=== PATIENT | male | born 1970 | race Caucasian/White ===

== ENCOUNTER 2016-11-28 11:17 | Emergency (ER) | payer SELFPAY ==
[~2016-11-28] VITALS: Ht 170.2 cm; Wt 100.2 kg
[~2016-11-28 11:17] MED LIST: CIPR-225 PO; HYDR-3816 PO
[2016-11-28] MEDS ORDERED: NS IV 1000 ML 1,000 ML IV ONE (12:03)
[2016-11-28] MEDS ORDERED: KETOROLAC 30 MG/ML VIAL IVP STA (12:03)
--- NOTE | 2016-11-28 12:03 | ED GU-Male ---
General Chief Complaint: Back Problems Stated Complaint: POSS KIDNEY STONE Nursing Triage Note: pt c/o l lower back pain x 1 month with worsening pain since last noc. he reports he has a known 4 mm kidney stone. Source: patient Exam Limitations: no limitations History of Present Illness Time seen by provider: 11:46 Initial Comments 45-year-old male patient presents to the emergency department with complaints of kidney stone. Patient reports left low back pain beginning last night. Was diagnosed at [facility] one month ago with a 4 mm kidney stone. Patient states he was seen at [facility] due to being in custodial in [place]. Timing/Duration: constant, yesterday Severity/Quality: severe, sharp Location: other (left back) Radiation: none Activities at Onset: none Prior Genitourinary Problems: similar symptoms Modifying Factors: Worsens With Palpation Allergies and Home Medications Allergies Coded Allergies: No Known Drug Allergies (Unverified , 02/14/16) Home Medications Ciprofloxacin HCl 500 Mg Tablet, 500 MG PO BID, #14 Prescribed by: VALENTINA VILLAFUERTE on 02/14/161942 Ciprofloxacin HCl 500 Mg Tablet, 500 MG PO BID, #14 Ref 0 Prescribed by: DANA OMALLEY on 11/28/16 1402 Hydrocodone/Acetaminophen 1 Each Tablet, 1 EACH PO Q6H, #10 Prescribed by: VALENTINA VILLAFUERTE on 02/14/161942 Naproxen 500 Mg Tablet, 500 MG PO BID PRN for pain, #20 Ref 0 Prescribed by: DANA OMALLEY on 11/28/16 1402 Ondansetron 8 Mg Tab.rapdis, 8 MG PO Q6H PRN for NAUSEA/VOMITING-1ST LINE, #10 Ref 0 Prescribed by: DANA OMALLEY on 11/28/16 1402 Phenazopyridine HCl 100 Mg Tablet, 100 MG PO Q8H PRN for ain, #14 Ref 1 Prescribed by: DANA OMALLEY on 11/28/16 1402 Tamsulosin HCl 0.4 Mg Cap, 0.4 MG PO DAILY, #7 Ref 0 Prescribed by: DANA OMALLEY on 11/28/16 1402 Constitutional: No chills, No fever, No malaise Respiratory: No cough, No short of breath Cardiovascular: No chest pain, No palpitations Gastrointestinal: No abdominal pain, No constipation, No diarrhea, No loss of appetite, No melena, No nausea, No vomiting Genitourinary: see HPI, denies dysuria, denies frequency, denies flank pain, denies hematuria, denies pain Musculoskeletal: see HPI, back pain Skin: no symptoms reported Psychiatric/Neurological: No Symptoms Reported All Other Systemes Reviewed Negative Unless Noted: Yes (Negative excepted noted.) Past Hgogyoc-Vnlkvv-Ewsooj Hx Patient Social History Alcohol Use: Denies Use Recreational Drug Use: Yes Drug of Choice: methamphetamines, marijuana Smoking Status: Current Everyday Smoker Type Used: Cigarettes 2nd Hand Smoke Exposure: Yes Recent Foreign Travel: No Contact w/Someone Who Travel: No Recent Infectious Disease Expo: No Recent Hopitalizations: No Surgeries HX Surgeries: No Respiratory Hx Respiratory Disorders: No Cardiovascular Hx Cardiac Disorders: No Neurological Hx Neurological Disorders: No Reproductive System Hx Reproductive Disorders: No Genitourinary Hx Genitourinary Disorders: No Gastrointestinal Hx Gastrointestinal Disorders: Yes Gastrointestinal Disorders: Hepatitis Musculoskeletal Hx Musculoskeletal Disorders: No Endocrine Hx Endocrine Disorders: No HEENT HX ENT Disorders: No Cancer Hx Cancer: No Psychosocial Hx Psychiatric Problems: No Integumentary HX Skin/Integumentary Disorder: No Blood Transfusions Hx Blood Disorders: No Reviewed Nursing Assessment Reviewed/Agree w Nursing PMH: Yes Family Medical History Significant Family History: Heart Disease Physical Exam Vital Signs Vital Sign - Last 12Hours 11/28/16 11:44 Temp 97.1 Pulse 115 Resp 20 B/P (MAP) 148/99 Pulse Ox 98 O2 Delivery Room Air Capillary Refill : Less Than 3 Seconds General Appearance: WD/WN, no apparent distress ((patient lying in bed with his hands behind his head. Patient noted to be constantly moving his hands and BLE.)) Cardiovascular: normal peripheral pulses, no murmur, tachycardia Respiratory: lungs clear, normal breath sounds, no respiratory distress Gastrointestinal: normal bowel sounds, non tender, soft, no organomegaly, No distended Back: normal inspection, No CVA tenderness (R), CVA tenderness (L) (No pain response noted with the first 2 taps of the left low back. I repeated the tapping and patient now noted to grimace in pain.) Extremities: no pedal edema, normal capillary refill, other Neurologic/Psychiatric: alert, oriented x 3, other (patient very fidgety. Constantly moving hands and feet. Otherwise normal mood and affect.) Skin: normal color, warm/dry, other (numerous scabs noted of the upper and lower extremities in various stages of healing. (Patient states he is staying with a friend and they have bedbugs)) Progress/Results/Core Measures Results/Orders Lab Results Laboratory Tests Test 11/28/16 11:30 11/28/16 12:05 Range/Units White Blood Count 5.5 4.3-11.0 10^3/uL Red Blood Count 4.49 4.35-5.85 10^6/uL Hemoglobin 14.0 13.3-17.7 G/DL Hematocrit 41 40-54 % Mean Corpuscular Volume 92 80-99 FL Mean Corpuscular Hemoglobin 31 25-34 PG Mean Corpuscular Hemoglobin Concent 34 32-36 G/DL Red Cell Distribution Width 14.4 10.0-14.5 % Platelet Count 83 L 130-400 10^3/uL Mean Platelet Volume 10.0 7.4-10.4 FL Neutrophils (%) (Auto) 74 42-75 % Lymphocytes (%) (Auto) 15 12-44 % Monocytes (%) (Auto) 9 0-12 % Eosinophils (%) (Auto) 2 0-10 % Basophils (%) (Auto) 0 0-10 % Neutrophils # (Auto) 4.0 1.8-7.8 X 10^3 Lymphocytes # (Auto) 0.8 L 1.0-4.0 X 10^3 Monocytes # (Auto) 0.5 0.0-1.0 X 10^3 Eosinophils # (Auto) 0.1 0.0-0.3 10^3/uL Basophils # (Auto) 0.0 0.0-0.1 10^3/uL Sodium Level 137 135-145 MMOL/L Potassium Level 3.6 3.6-5.0 MMOL/L Chloride Level 106 98-107 MMOL/L Carbon Dioxide Level 25 21-32 MMOL/L Anion Gap 6 5-14 MMOL/L Blood Urea Nitrogen 10 7-18 MG/DL Creatinine 1.16 0.60-1.30 MG/DL Estimat Glomerular Filtration Rate > 60 BUN/Creatinine Ratio 9 Glucose Level 100 70-105 MG/DL Calcium Level 8.7 8.5-10.1 MG/DL Total Bilirubin 1.1 H 0.1-1.0 MG/DL Aspartate Amino Transf (AST/SGOT) 95 H 5-34 U/L Alanine Aminotransferase (ALT/SGPT) 105 H 0-55 U/L Alkaline Phosphatase 86 40-136 U/L Total Protein 6.9 6.4-8.2 GM/DL Albumin 3.5 3.2-4.5 GM/DL Urine Color YELLOW Urine Clarity CLEAR Urine pH 7 5-9 Urine Specific [place] 1.015 L 1.016-1.022 Urine Protein NEGATIVE NEGATIVE Urine Glucose (UA) NEGATIVE NEGATIVE Urine Ketones NEGATIVE NEGATIVE Urine Nitrite NEGATIVE NEGATIVE Urine Bilirubin NEGATIVE NEGATIVE Urine Urobilinogen 1 NORMAL MG/DL Urine Leukocyte Esterase NEGATIVE NEGATIVE Urine RBC (Auto) 4+ H NEGATIVE Urine RBC 10-25 H /HPF Urine WBC NONE /HPF Urine Squamous Epithelial Cells NONE /HPF Urine Crystals NONE /LPF Urine Bacteria NEGATIVE /HPF Urine Casts NONE /LPF Urine Mucus NEGATIVE /LPF Urine Culture Indicated NO Urine Opiates Screen NEGATIVE NEGATIVE Urine Oxycodone Screen NEGATIVE NEGATIVE Urine Methadone Screen NEGATIVE NEGATIVE Urine Propoxyphene Screen NEGATIVE NEGATIVE Urine Barbiturates Screen NEGATIVE NEGATIVE Ur Tricyclic Antidepressants Screen NEGATIVE NEGATIVE Urine Phencyclidine Screen NEGATIVE NEGATIVE Urine Amphetamines Screen POSITIVE H NEGATIVE Urine Methamphetamines Screen POSITIVE H NEGATIVE Urine Benzodiazepines Screen NEGATIVE NEGATIVE Urine Cocaine Screen NEGATIVE NEGATIVE Urine Cannabinoids Screen POSITIVE H NEGATIVE My Orders Orders - DANA OMALLEY Drug Screen Stat (Urine) (11/28/16 11:47) Ua Culture If Indicated (11/28/16 11:47) Cbc With Automated Diff (11/28/16 11:56) Comprehensive Metabolic Panel (11/28/16 11:56) Saline Lock/Iv-Start (11/28/16 11:56) Ct Abd/Pelvis Wo(Kidney Stone) (11/28/16 12:03) Ns Iv 1000 Ml (Sodium Chloride 0.9%) (11/28/16 12:03) Ketorolac Injection (Toradol Injection) (11/28/16 12:03) Abdomen/Kub 1view (11/28/16 13:29) Medications Given in ED Current Medications Medications Dose Ordered Sig/Maryellen Route Start Time Stop Time Status Last Admin Dose Admin Sodium Chloride 1,000 ml @ 0 mls/hr Q0M ONCE IV 11/28/16 12:03 11/28/16 12:04 DC 11/28/16 12:22 0 MLS/HR Vital Signs/I&O Vital Sign - Last 12Hours 11/28/16 11:44 Temp 97.1 Pulse 115 Resp 20 B/P (MAP) 148/99 Pulse Ox 98 O2 Delivery Room Air Blood Pressure Mean: 115 Diagnostic Imaging Diagonstic Imaging: CT Plain Films/CT/US/NM/MRI: abdomen, pelvis Comments There is a mild/moderate degree of left-sided hydroureteronephrosis secondary to a distal left ureteral stone measuring a diameter of 3.3 mm with an average Hounsfield unit density 433. This stone is found about 2 cm proximal to the UVJ. A second left pelvic calcification is believed phlebolith near the urinary bladder. This calcification is unchanged from the prior and felt incidental. There is trace pelvic free fluid. There is mild perinephric and periureteric edema on the left. No urinoma or fluid collection however. The liver 's density and morphology suggest cirrhosis likely worsened from the prior. Mild splenomegaly is also increased in magnitude, and there is progressive perisplenic, perigastric, and periesophageal vascular collaterals likely reflective of the sequelae of portal venous hypertension, also is likely recanalization of the periumbilical vein on the same basis. There is some edema and infiltration of the fat along the mesenteric root as well as in the retroperitoneum most notably adjacent to the duodenum. Duodenal inflammation could not be excluded. This may also be edema from suspected portal hypertension. The appendix appeared normal. There is resolution of the previous right hydronephrosis. There are a few gallstones present but no biliary dilatation. No basilar pleural fluid. IMPRESSION: 1. Moderate left hydroureteronephrosis secondary to a distal left ureteral stone 3.3 mm diameter proximal to the UVJ. Resolution of previous obstructing right-sided uropathy. 2. Worsened splenomegaly. Likely cirrhosis and progressive sequelae of portal venous hypertension with trace pelvic free fluid. 3. Cholelithiasis without biliary dilatation. 4. Some edema along the mesenteric root and retroperitoneum peripheral to the transverse and descending duodenum. This likely is secondary to the suspected portal hypertension itself; however, duodenitis or even low- grade inflammatory changes to the pancreas could not be excluded in the appropriate clinical scenario. Dictated on workstation # [id number] Reviewed: Reviewed by Me (radiology report reviewed by me) Diagonstic Imaging: Xray Plain Films/CT/US/NM/MRI: abdomen Comments FINDINGS: There is a moderate amount of stool in the colon. Bowel gas pattern is normal. There are no pathologic masses or calcifications. IMPRESSION: No acute abnormality seen in the abdomen. Dictated by: Dictated on workstation # [id number] Reviewed: Reviewed by Me (radiology report reviewed by me) Departure Communication Progress Notes All laboratory and diagnostic findings discussed with the patient. Patient reports using methamphetamines 2-3 days ago. Patient reports feeling better with medications. Patient follow-up with primary care physician of his choice and/or Dr. Shepard. Patient to call thursday for appointment time. Impression Impression: Primary Impression: Nephrolithiasis Additional Impressions: incidental cholelithiasis Cirrhosis Splenomegaly Methamphetamine abuse Disposition: HOME, SELF-CARE Condition: Improved Departure-Patient Inst. Decision time for Depature: 13:49 Referrals: NO,LOCAL PHYSICIAN (PCP) Primary Care Physician JAGDEEP SHEPARD MD Patient Instructions: Cirrhosis (DC), Gallstones, Kidney Stones (DC) Add. Discharge Instructions: All discharge instructions reviewed with patient and/or family. Voiced understanding. Medications as instructed. Ibuprofen 800 mg by mouth every 8 hours as needed for pain. Strain all urines. Follow-up with your primary care physician bud or Dr. Shepard for recheck and repeat x-ray Thursday or Thursday. Call for appointment time Thursday. Follow-up with the family practitioner of your choice for further evaluation and management of the enlarged spleen and cirrhosis as well as possible need for referral to a surgeon for possible need of gallbadder removal. Strict low-fat diet. Return to the emergency department for worsened pain, fever, inability to urinate, blood in urine, or any other concerns. Scripts Ondansetron (Ondansetron Odt) 8 Mg Tab.rapdis 8 MG PO Q6H Y for NAUSEA/VOMITING-1ST LINE, #10 TAB 0 Refills Prov: DANA OMALLEY 11/28/16 Phenazopyridine HCl (Pyridium) 100 Mg Tablet 100 MG PO Q8H Y for ain, #14 TAB 1 Refill Prov: DANA OMALLEY 11/28/16 Tamsulosin HCl (Flomax) 0.4 Mg Cap 0.4 MG PO DAILY, #7 CAP 0 Refills Prov: DANA OMALLEY 11/28/16 Naproxen (Naprosyn) 500 Mg Tablet 500 MG PO BID Y for pain, #20 TAB 0 Refills Prov: DANA OMALLEY 11/28/16 Ciprofloxacin HCl (Ciprofloxacin HCl) 500 Mg Tablet 500 MG PO BID, #14 TAB 0 Refills Prov: DANA OMALLEY 11/28/16 DANA OMALLEY Nov 28, 2016 12:03
[2016-11-28 12:04] LABS: BASOPHILS % (AUTO) 0 % (0-10); EOSINOPHILS # (AUTO) 0.1 10^3/uL (0.0-0.3); EOSINOPHILS % (AUTO) 2 % (0-10); LYMPHOCYTES # (AUTO) 0.8 X 10^3 (1.0-4.0); LYMPHOCYTES % (AUTO) 15 % (12-44); MEAN CORPUSCULAR HEMOGLOBIN 31 PG (25-34); MEAN CORPUSCULAR HGB CONC 34 G/DL (32-36); MEAN CORPUSCULAR VOLUME 92 FL (80-99); MONOCYTES # (AUTO) 0.5 X 10^3 (0.0-1.0); MONOCYTES % (AUTO) 9 % (0-12); NEUTROPHILS % (AUTO) 74 % (42-75); PLATELET COUNT 83 10^3/uL (130-400); RED BLOOD COUNT 4.49 10^6/uL (4.35-5.85); RED CELL DISTRIBUTION WIDTH 14.4 % (10.0-14.5); WHITE BLOOD COUNT 5.5 10^3/uL (4.3-11.0)
[2016-11-28 12:16] LABS: BILIRUBIN,URINE NEGATIVE (NEGATIVE); KETONES,URINE NEGATIVE (NEGATIVE); LEUKOCYTE ESTERASE ,URINE NEGATIVE (NEGATIVE); NITRITE,URINE NEGATIVE (NEGATIVE); PH,URINE 7 (5-9); PROTEIN,URINE NEGATIVE (NEGATIVE); UROBILINOGEN,URINE 1 MG/DL (NORMAL)
[2016-11-28 12:18] LABS: ALANINE AMINOTRANSFERASE 105 U/L (0-55); ALBUMIN 3.5 GM/DL (3.2-4.5); ANION GAP 6 MMOL/L (5-14); ASPARTATE AMINO TRANSFERASE 95 U/L (5-34); BILIRUBIN,TOTAL 1.1 MG/DL (0.1-1.0); BLOOD UREA NITROGEN 10 MG/DL (7-18); BUN/CREATININE RATIO 9; CALCIUM 8.7 MG/DL (8.5-10.1); CARBON DIOXIDE 25 MMOL/L (21-32); CHLORIDE 106 MMOL/L (98-107); CREATININE SERUM 1.16 MG/DL (0.60-1.30); GFR ESTIMATED > 60; GLUCOSE 100 MG/DL (70-105); POTASSIUM 3.6 MMOL/L (3.6-5.0); SODIUM 137 MMOL/L (135-145); TOTAL PROTEIN 6.9 GM/DL (6.4-8.2)
--- NOTE | 2016-11-28 13:41 | Diagnostic Imaging Report ---
PROCEDURE: CT urinary tract, rule out kidney stone. TECHNIQUE: Multiple contiguous axial images were obtained through the abdomen and pelvis without the use of intravenous contrast. INDICATION: Left flank pain worsening in severity. History of nephrolithiasis. Exam is compared with study performed 02/14/2016. There is a mild/moderate degree of left-sided hydroureteronephrosis secondary to a distal left ureteral stone measuring a diameter of 3.3 mm with an average Hounsfield unit density 433. This stone is found about 2 cm proximal to the UVJ. A second left pelvic calcification is believed phlebolith near the urinary bladder. This calcification is unchanged from the prior and felt incidental. There is trace pelvic free fluid. There is mild perinephric and periureteric edema on the left. No urinoma or fluid collection however. The liver 's density and morphology suggest cirrhosis likely worsened from the prior. Mild splenomegaly is also increased in magnitude, and there is progressive perisplenic, perigastric, and periesophageal vascular collaterals likely reflective of the sequelae of portal venous hypertension, also is likely recanalization of the periumbilical vein on the same basis. There is some edema and infiltration of the fat along the mesenteric root as well as in the retroperitoneum most notably adjacent to the duodenum. Duodenal inflammation could not be excluded. This may also be edema from suspected portal hypertension. The appendix appeared normal. There is resolution of the previous right hydronephrosis. There are a few gallstones present but no biliary dilatation. No basilar pleural fluid. IMPRESSION: 1. Moderate left hydroureteronephrosis secondary to a distal left ureteral stone 3.3 mm diameter proximal to the UVJ. Resolution of previous obstructing right-sided uropathy. 2. Worsened splenomegaly. Likely cirrhosis and progressive sequelae of portal venous hypertension with trace pelvic free fluid. 3. Cholelithiasis without biliary dilatation. 4. Some edema along the mesenteric root and retroperitoneum peripheral to the transverse and descending duodenum. This likely is secondary to the suspected portal hypertension itself; however, duodenitis or even low-grade inflammatory changes to the pancreas could not be excluded in the appropriate clinical scenario. Dictated by: Dictated on workstation # [id number]
--- NOTE | 2016-11-28 13:48 | Diagnostic Imaging Report ---
INDICATION: Abdominal pain. KUB at 1:54 PM FINDINGS: There is a moderate amount of stool in the colon. Bowel gas pattern is normal. There are no pathologic masses or calcifications. IMPRESSION: No acute abnormality seen in the abdomen. Dictated by: Dictated on workstation # [id number]
[2016-11-28] MEDS ORDERED: CIPR500T4 PO (14:02)
[2016-11-28] MEDS ORDERED: ONDA8TAB13 PO (14:02)
[2016-11-28] MEDS ORDERED: PHEN-639 PO (14:02)
[2016-11-28] MEDS ORDERED: NAPR500T PO (14:02)
[2016-11-28] MEDS ORDERED: TAMS0.4C98 PO (14:02)
[2016-11-28 14:10] VITALS: BP 148/99
== END 2016-11-28 14:10 | disposition home or self-care (01) ==
LOC: EDUNIT# 11:17 → ER 11:20
DX: N20.0 Calculus of kidney (principal); K80.20 Calculus of gallbladder without cholecystitis without obstruction; K74.60 Unspecified cirrhosis of liver; R16.1 Splenomegaly, not elsewhere classified; F17.210 Nicotine dependence, cigarettes, uncomplicated; F15.10 Other stimulant abuse, uncomplicated; F12.90 Cannabis use, unspecified, uncomplicated; Z82.49 Family history of ischemic heart disease and other diseases of the circulatory system
CPT/HCPCS: 36415; 74000; 74176; 80053; 80306; 81000; 85025

== ENCOUNTER 2020-01-09 14:35 | Emergency (ER) | payer SELFPAY ==
[~2020-01-09] VITALS: Ht 171 cm; Wt 83.3 kg
[~2020-01-09 14:35] MED LIST changes: +CIPR500T4 PO; +HYDR-34 PO; -HYDR-3816 PO; +NAPR-1071 PO; +ONDA8TAB13 PO; +PHEN-639 PO; +TMSL.4C PO
[2020-01-09] MEDS ORDERED: HOLD METFORMIN - RECEIVED CONTRAST 20 ML VIAL IV SCH (15:00)
[2020-01-09] MEDS ORDERED: VANCOMYCIN INJECTION 1,000 MG in NS (IVPB) 250 ML IV ONE (15:00)
[2020-01-09] MEDS ORDERED: IOHEXOL 350 MG/ML 100 ML (OMNIPAQUE 350) VIAL IV ONE (15:00)
[2020-01-09] MEDS ORDERED: NS 100 ML (IVPB) BAG IV ONE (15:00)
[2020-01-09] MEDS ORDERED: CATHETER FLUSH 10 ML SYR IV PRN (15:00)
--- NOTE | 2020-01-09 15:01 | ED Integumentary General ---
General Chief Complaint: Skin/Wound Problems Stated Complaint: FACIAL SWELLING Source: patient Exam Limitations: no limitations History of Present Illness Date Seen by Provider: Jan 09, 2020 Time Seen by Provider: 14:50 Initial Comments 49-year-old male presents to the walk-in clinic for swelling of his left jaw. Sent to the ER for evaluation due to concerns of neck swelling. Given a shot of Rocephin IM. Patient states the swelling has been present beginning a couple days ago and is getting significantly worse today. Started off as a small bump on his left jaw that he admits to squeezing. Has had some drainage from this location, although not significant. Now having swelling and some pain in his left side of his neck and his upper anterior chest. Denies fever or chills, other areas of swelling or sores. Admitted Meth user. Allergies and Home Medications Allergies Coded Allergies: No Known Drug Allergies (Unverified , 02/14/16) Home Medications Ciprofloxacin HCl 500 Mg Tablet, 500 MG PO BID Prescribed by: VALENTINA VILLAFUERTE on 02/14/161942 Ciprofloxacin HCl 500 Mg Tablet, 500 MG PO BID Prescribed by: DANA OMALLEY on 11/28/161401 Hydrocodone Bit/Acetaminophen 1 Each Tablet, 1 EACH PO Q6H Prescribed by: VALENTINA VILLAFUERTE on 02/14/161942 Hydrocodone/Acetaminophen 1 Each Tablet, 1 EACH PO Q4H Prescribed by: MILLY NI on 01/09/20 160 Naproxen 500 Mg Tablet, 500 MG PO BID PRN for pain Prescribed by: DANA OMALLEY on 11/28/161401 Ondansetron 8 Mg Tab.rapdis, 8 MG PO Q6H PRN for NAUSEA/VOMITING-1ST LINE Prescribed by: DANA OMALLEY on 11/28/161401 Phenazopyridine HCl 100 Mg Tablet, 100 MG PO Q8H PRN for ain Prescribed by: DANA OMALLEY on 11/28/161401 Sulfamethoxazole/Trimethoprim 1 Each Tablet, 1 EACH PO BID Prescribed by: MILLY NI on 01/09/20 160 Tamsulosin HCl 0.4 Mg Cap, 0.4 MG PO DAILY Prescribed by: DANA OMALLEY on 11/28/161401 Patient Home Medication List Home Medication List Reviewed: Yes Review of Systems Review of Systems Constitutional: No dizziness, No fever, No malaise, No weakness EENTM: see HPI, dental problems (but no dental pain (chronic dental decay)), throat pain, throat swelling; No blurred vision, No double vision, No eye pain, No hoarseness, No mouth pain, No mouth swelling, No epistaxis, No nose c ongestion, No nose pain Respiratory: No cough, No short of breath, No stridor, No wheezing Cardiovascular: see HPI; No chest pain, No edema, No palpitations, No syncope Gastrointestinal: No abdominal pain, No constipation, No diarrhea, No loss of appetite, No nausea, No vomiting Musculoskeletal: No back pain Past Ycvjjkl-Dfupms-Mxwihx Hx Past Med/Social Hx: Reviewed Nursing Past Med/Soc Hx Patient Social History Alcohol Use: Denies Use Recreational Drug Use: Yes (Last used meth 01/09/20) Drug of Choice: intravenous methamphetamines, marijuana Smoking Status: Current Everyday Smoker Type Used: Cigarettes 2nd Hand Smoke Exposure: Yes Recent Foreign Travel: No Contact w/Someone Who Travel: No Recent Hopitalizations: No Physical Abuse: No Sexual Abuse: No Mistreated: No Fear: No Seasonal Allergies Seasonal Allergies: No Past Medical History Surgeries: Yes (Kidney stone removal) Respiratory: No Cardiac: No Neurological: No Reproductive Disorders: No Genitourinary: Yes Kidney Stones Gastrointestinal: Yes Hepatitis Musculoskeletal: No Endocrine: No Cancer: No Psychosocial: No Integumentary: No Blood Disorders: No Family Medical History Heart Disease Physical Exam Vital Signs Vital Signs - First Documented 01/09/20 14:48 Temp 37.6 Pulse 106 Resp 18 B/P (MAP) 143/90 (107) Pulse Ox 98 O2 Delivery Room Air Capillary Refill : General Appearance: WD/WN, no apparent distress HEENT: PERRL/EOMI, other (gross edema left mandible and left submandibular area w induration of left lateral and anterior neck as well as upper ant chest.) Cardiovascular: regular rate, rhythm, no edema, no gallop Respiratory: lungs clear, normal breath sounds, no respiratory distress, no accessory muscle use Gastrointestinal: non tender, soft; No distended, No guarding, No rebound Back: No normal inspection; no CVA tenderness, no vertebral tenderness Neurologic/Psychiatric: instructor decorating II-XII nml as tested, no motor/sensory deficits, alert, normal mood/affect, oriented x 3 Progress/Results/Core Measures Results/Orders Lab Results Laboratory Tests Test 01/09/20 14:58 Range/Units White Blood Count 8.7 4.3-11.0 10^3/uL Red Blood Count 4.68 4.35-5.85 10^6/uL Hemoglobin 14.1 13.3-17.7 G/DL Hematocrit 43 40-54 % Mean Corpuscular Volume 92 80-99 FL Mean Corpuscular Hemoglobin 30 25-34 PG Mean Corpuscular Hemoglobin Concent 33 32-36 G/DL Red Cell Distribution Width 15.4 H 10.0-14.5 % Platelet Count 55 L 130-400 10^3/uL Mean Platelet Volume 10.0 7.4-10.4 FL Neutrophils (%) (Auto) 81 H 42-75 % Lymphocytes (%) (Auto) 10 L 12-44 % Monocytes (%) (Auto) 8 0-12 % Eosinophils (%) (Auto) 1 0-10 % Basophils (%) (Auto) 0 0-10 % Neutrophils # (Auto) 7.0 1.8-7.8 X 10^3 Lymphocytes # (Auto) 0.9 L 1.0-4.0 X 10^3 Monocytes # (Auto) 0.7 0.0-1.0 X 10^3 Eosinophils # (Auto) 0.1 0.0-0.3 10^3/uL Basophils # (Auto) 0.0 0.0-0.1 10^3/uL Sodium Level 135 135-145 MMOL/L Potassium Level 3.6 3.6-5.0 MMOL/L Chloride Level 98 98-107 MMOL/L Carbon Dioxide Level 25 21-32 MMOL/L Anion Gap 12 5-14 MMOL/L Blood Urea Nitrogen 10 7-18 MG/DL Creatinine 0.76 0.60-1.30 MG/DL Estimat Glomerular Filtration Rate > 60 BUN/Creatinine Ratio 13 Glucose Level 116 H 70-105 MG/DL Calcium Level 9.2 8.5-10.1 MG/DL Corrected Calcium 9.2 8.5-10.1 MG/DL Total Bilirubin 3.4 H 0.1-1.0 MG/DL Aspartate Amino Transf (AST/SGOT) 90 H 5-34 U/L Alanine Aminotransferase (ALT/SGPT) 86 H 0-55 U/L Alkaline Phosphatase 78 40-136 U/L Total Protein 7.4 6.4-8.2 GM/DL Albumin 4.0 3.2-4.5 GM/DL My Orders Orders - MILLY NI DO Ct Neck (Soft Tissue) W (01/09/20 14:48) Ed Iv/Invasive Line Start (01/09/20 14:48) Blood Culture (01/09/20 14:48) Cbc With Automated Diff (01/09/20 14:48) Comprehensive Metabolic Panel (01/09/20 14:48) Iohexol Injection (Omnipaque 350 Mg/Ml 1 (01/09/20 15:00) Received Contrast (Hold Metformin- Contr (01/09/20 15:00) Sodium Chloride Flush (Catheter Flush Sy (01/09/20 15:00) Ns (Ivpb) (Sodium Chloride 0.9% Ivpb Bag (01/09/20 15:00) Vancomycin Injection (Vancomycin Injecti (01/09/20 15:00) Blood Culture (01/09/20 15:03) Ns Iv 1000 Ml (Sodium Chloride 0.9%) (01/09/20 15:45) Medications Given in ED Current Medications Medications Dose Ordered Sig/Maryellen Route Start Time Stop Time Status Last Admin Dose Admin Iohexol 75 ml ONCE ONCE IV 01/09/20 15:00 01/09/20 15:01 DC 01/09/20 15:15 75 ML Sodium Chloride 10 ml NEEDED PRN IV 01/09/20 15:00 01/09/20 15:15 10 ML Sodium Chloride 100 ml ONCE ONCE IV 01/09/20 15:00 01/09/20 15:01 DC 01/09/20 15:15 80 ML Vancomycin HCl 1000 mg/Sodium Chloride 250 ml @ 250 mls/hr ONCE ONCE IV 01/09/20 15:00 01/09/20 15:59 DC 01/09/20 15:21 250 MLS/HR Vital Signs/I&O 01/09/20 14:48 Temp 37.6 Pulse 106 Resp 18 B/P (MAP) 143/90 (107) Pulse Ox 98 O2 Delivery Room Air Diagnostic Imaging Diagonstic Imaging: CT Comments FINDINGS: The visualized intracranial structures are unremarkable. The posterior nasopharynx and oropharynx are unremarkable. The parapharyngeal fat planes are preserved. The epiglottis and larynx are unremarkable. No thyroid mass is detected. The submandibular and parotid glands appear to be symmetric. There is edema and soft tissue swelling in the left face at the level of the left maxilla and mandible. Edema and swelling extend inferiorly to the left neck. There is thickening of the platysma. No well-formed fluid collection or abscess is identified. The retropharyngeal soft tissues are unremarkable. Minimally prominent lymph nodes in the left neck are seen, likely reactive. The visualized paranasal sinuses are clear apart from trace mucosal thickening in the left maxillary sinus. The mastoids are well aerated. IMPRESSION: Findings are suggestive of cellulitis over the left face and left neck. No fluid collection or abscess is identified. Dictated by: Dictated on workstation # [id number] Dict: 01/09/20 1534 Trans: 01/09/20 1548 [id number] Interpreted by: ALLISON VARGAS MD Electronically signed by: ALLISON VARGAS MD 01/09/20 1548 Departure Impression Primary Impression: Facial cellulitis Disposition: HOME, SELF-CARE Condition: Stable Admissions Decision to Admit Reason: Admit from ER (General) Departure-Patient Inst. Decision time for Depature: 16:01 Referrals: [facility] – [facility],LOCAL PHYSICIAN (PCP) Primary Care Physician Patient Instructions: Cellulitis (Skin Infection), Adult (DC) Add. Discharge Instructions: Follow up at the [facility] ([facility]) in 2 days for re-evaluation. Ret urn to the ER sooner if worse. All discharge instructions reviewed with patient and/or family. Voiced understanding. Scripts Hydrocodone/Acetaminophen (Hydrocodone-Acetamin 5-325 mg) 1 Each Tablet 1 EACH PO Q4H for Abdominal Pain, #10 TAB Prov: MILLY NI DO 01/09/20 Sulfamethoxazole/Trimethoprim (Bactrim Ds Tablet) 1 Each Tablet 1 EACH PO BID, #20 TAB 0 Refills Prov: MILLY NI DO 01/09/20 Work/School Note: Work Release Form Date Seen in the Emergency Department: Jan 09, 2020 MILLY NI DO Jan 09, 2020 15:01
[2020-01-09 15:12] LABS: HEMATOCRIT 43 % (40-54); HEMOGLOBIN 14.1 G/DL (13.3-17.7); MEAN CORPUSCULAR HEMOGLOBIN 30 PG (25-34); WHITE BLOOD COUNT 8.7 10^3/uL (4.3-11.0)
[2020-01-09 15:13] LABS: BASOPHILS % (AUTO) 0 % (0-10); EOSINOPHILS # (AUTO) 0.1 10^3/uL (0.0-0.3); EOSINOPHILS % (AUTO) 1 % (0-10); LYMPHOCYTES # (AUTO) 0.9 X 10^3 (1.0-4.0); LYMPHOCYTES % (AUTO) 10 % (12-44); MEAN CORPUSCULAR HGB CONC 33 G/DL (32-36); MEAN CORPUSCULAR VOLUME 92 FL (80-99); MONOCYTES # (AUTO) 0.7 X 10^3 (0.0-1.0); MONOCYTES % (AUTO) 8 % (0-12); NEUTROPHILS % (AUTO) 81 % (42-75); PLATELET COUNT 55 10^3/uL (130-400); RED CELL DISTRIBUTION WIDTH 15.4 % (10.0-14.5)
[2020-01-09 15:29] LABS: BUN/CREATININE RATIO 13; CARBON DIOXIDE 25 MMOL/L (21-32); CHLORIDE 98 MMOL/L (98-107); CREATININE SERUM 0.76 MG/DL (0.60-1.30); GFR ESTIMATED > 60; POTASSIUM 3.6 MMOL/L (3.6-5.0); SODIUM 135 MMOL/L (135-145)
[2020-01-09 15:30] LABS: ALANINE AMINOTRANSFERASE 86 U/L (0-55); ALKALINE PHOSPHATASE 78 U/L (40-136); BILIRUBIN,TOTAL 3.4 MG/DL (0.1-1.0); CALCIUM 9.2 MG/DL (8.5-10.1); GLUCOSE 116 MG/DL (70-105); TOTAL PROTEIN 7.4 GM/DL (6.4-8.2)
--- NOTE | 2020-01-09 15:42 | Diagnostic Imaging Report ---
PROCEDURE: CT neck soft tissue with contrast. TECHNIQUE: Multiple contiguous axial images were obtained through the neck after the administration of contrast. Auto Exposure Controls were utilized during the CT exam to meet ALARA standards for radiation dose reduction. INDICATION: Left neck abscess. COMPARISON: No prior studies are available for comparison. FINDINGS: The visualized intracranial structures are unremarkable. The posterior nasopharynx and oropharynx are unremarkable. The parapharyngeal fat planes are preserved. The epiglottis and larynx are unremarkable. No thyroid mass is detected. The submandibular and parotid glands appear to be symmetric. There is edema and soft tissue swelling in the left face at the level of the left maxilla and mandible. Edema and swelling extend inferiorly to the left neck. There is thickening of the platysma. No well-formed fluid collection or abscess is identified. The retropharyngeal soft tissues are unremarkable. Minimally prominent lymph nodes in the left neck are seen, likely reactive. The visualized paranasal sinuses are clear apart from trace mucosal thickening in the left maxillary sinus. The mastoids are well aerated. IMPRESSION: Findings are suggestive of cellulitis over the left face and left neck. No fluid collection or abscess is identified. Dictated by: Dictated on workstation # [id number]
[2020-01-09] MEDS ORDERED: NS IV 1000 ML 1,000 ML IV SCH (15:45)
[2020-01-09] MEDS ORDERED: SULF1TAB35 PO (16:02)
[2020-01-09] MEDS ORDERED: HYDR-3812 PO (16:02)
[2020-01-09 16:17] VITALS: BP 147/85
== END 2020-01-09 16:17 | disposition home or self-care (01) ==
LOC: EDUNIT# 14:35 → ER FS 14:38
DX: L03.211 Cellulitis of face (principal); F17.210 Nicotine dependence, cigarettes, uncomplicated; Z82.49 Family history of ischemic heart disease and other diseases of the circulatory system
CPT/HCPCS: 36415; 70491; 80053; 85025; 87040

== ENCOUNTER 2020-06-09 20:18 | Emergency (ER) | payer SELFPAY ==
[~2020-06-09] VITALS: Ht 170 cm; Wt 83.3 kg
[~2020-06-09 20:18] MED LIST changes: +ACHD5005 PO; +SULF1TAB35 PO
[2020-06-09] MEDS ORDERED: TETANUS,DIPTH,PERTUSS P/F (BOOSTRIX) 0.5 ML VIAL IM ONE ×2 (20:42→20:45)
--- NOTE | 2020-06-09 20:48 | ED Integumentary General ---
General Stated Complaint: HEAD LACERATION Source: patient Exam Limitations: no limitations History of Present Illness Date Seen by Provider: Jun 09, 2020 Time Seen by Provider: 20:46 Initial Comments Patient was climbing into the backseat of a truck when some sharp piece of jagged metal lacerated his scalp. No loss of consciousness. Tetanus is not up-to-date. This occurred just prior to arrival. Timing/Duration: just prior to arrival Location: scalp Associated Symptoms: denies symptoms Allergies and Home Medications Allergies Coded Allergies: No Known Drug Allergies (Unverified , 02/14/16) Home Medications Ciprofloxacin HCl 500 Mg Tablet, 500 MG PO BID Prescribed by: VALENTINA VILLAFUERTE on 02/14/161942 Ciprofloxacin HCl 500 Mg Tablet, 500 MG PO BID Prescribed by: DANA OMALLEY on 11/28/161401 Hydrocodone Bit/Acetaminophen 1 Each Tablet, 1 EACH PO Q6H Prescribed by: VALENTINA VILLAFUERTE on 02/14/161942 Hydrocodone/Acetaminophen 1 Each Tablet, 1 EACH PO Q4H Prescribed by: MILLY NI on 01/09/20 160 Naproxen 500 Mg Tablet, 500 MG PO BID PRN for pain Prescribed by: DANA OMALLEY on 11/28/16 140 Ondansetron 8 Mg Tab.rapdis, 8 MG PO Q6H PRN for NAUSEA/VOMITING-1ST LINE Prescribed by: DANA OMALLEY on 11/28/161401 Phenazopyridine HCl 100 Mg Tablet, 100 MG PO Q8H PRN for ain Prescribed by: DANA OMALLEY on 11/28/161401 Sulfamethoxazole/Trimethoprim 1 Each Tablet, 1 EACH PO BID Prescribed by: MILLY NI on 01/09/20 160 Tamsulosin HCl 0.4 Mg Cap, 0.4 MG PO DAILY Prescribed by: DANA OMALLEY on 11/28/161401 Patient Home Medication List Home Medication List Reviewed: Yes Review of Systems Review of Systems Constitutional: see HPI EENTM: see HPI Respiratory: no symptoms reported Cardiovascular: no symptoms reported Genitourinary: no symptoms reported Musculoskeletal: no symptoms reported Skin: no symptoms reported Psychiatric/Neurological: No Symptoms Reported Endocrine: No Symptoms Reported Past Ecvhdqq-Xjsgrq-Yzxjma Hx Patient Social History Drug of Choice: intravenous methamphetamines, marijuana Type Used: Cigarettes 2nd Hand Smoke Exposure: Yes Recent Hopitalizations: No Seasonal Allergies Seasonal Allergies: No Past Medical History Surgeries: Yes (Kidney stone removal) Respiratory: No Cardiac: No Neurological: No Reproductive Disorders: No Genitourinary: Yes Kidney Stones Gastrointestinal: Yes Hepatitis Musculoskeletal: No Endocrine: No Cancer: No Psychosocial: No Integumentary: No Blood Disorders: No Family Medical History Heart Disease Physical Exam Vital Signs Capillary Refill : General Appearance: WD/WN, no apparent distress HEENT: PERRL/EOMI, normal ENT inspection, TMs normal Respiratory: no respiratory distress, no accessory muscle use Neurologic/Psychiatric: alert, normal mood/affect, oriented x 3 Skin: normal color, warm/dry Skin Problem Character: other (1 cm rather superficial scalp laceration. Cleansed with chlorhexidine/saline solution then covered with some skin affix.) Progress/Results/Core Measures Results/Orders My Orders Orders - SHANTEL GODOY APRN Dipht,Pertuss(Acell),Tet Adult (Boostrix (06/09/20 20:45) Departure Impression Primary Impression: Scalp laceration Disposition: 01 HOME, SELF-CARE Condition: Stable Departure-Patient Inst. Decision time for Depature: 20:47 Referrals: NO,LOCAL PHYSICIAN (PCP/Family) Primary Care Physician Patient Instructions: Laceration Repair With Glue (DC) SHANTEL GODOY APRN Jun 09, 2020 20:48
[2020-06-09 21:57] VITALS: BP 170/92
== END 2020-06-09 21:57 | disposition home or self-care (01) ==
LOC: EDUNIT# 20:18 → ER 20:20
DX: S01.01XA Laceration without foreign body of scalp, initial encounter (principal); Z23 Encounter for immunization; Z82.49 Family history of ischemic heart disease and other diseases of the circulatory system; Z77.22 Contact with and (suspected) exposure to environmental tobacco smoke (acute) (chronic); W23.1XXA Caught, crushed, jammed, or pinched between stationary objects, initial encounter
CPT/HCPCS: 12001; 90715

== ENCOUNTER 2021-08-10 20:24 | Emergency (ER) | payer SELFPAY ==
[~2021-08-10] VITALS: Ht 170.1 cm; Wt 94.2 kg
[~2021-08-10 20:24] MED LIST changes: -CIPR500T4 PO; +CIPR500T5 PO; -SULF1TAB35 PO; +SULF1TAB38 PO
--- NOTE | 2021-08-10 20:26 | ED Integumentary General ---
General Stated Complaint: DOG BITE History of Present Illness Date Seen by Provider: Aug 10, 2021 Time Seen by Provider: 20:30 Initial Comments 50-year-old male presents with multiple dog bites on his right arm of both upper and forearm. He has a total of 3 bites. Reports that happened 2 days ago when he went to a friend's and walked in and his dog bit him protecting the house. Patient reports his last tetanus was about 1 year ago. Patient presents to have him evaluated. He reports that the dogs are up-to-date on their shots. Allergies and Home Medications Allergies Coded Allergies: No Known Drug Allergies (Unverified , 02/14/16) Patient Home Medication List Home Medication List Reviewed: Yes Ciprofloxacin HCl (Cipro) 500 Mg Tablet, 500 MG PO BID Prescribed by: VALENTINA VILLAFUERTE on 02/14/161942 Ciprofloxacin HCl (Ciprofloxacin HCl) 500 Mg Tablet, 500 MG PO BID Prescribed by: DANA OMALLEY on 11/28/161401 Hydrocodone Bit/Acetaminophen (Lortab 7.5 Mg Tablet) 1 Each Tablet, 1 EACH PO Q6H Prescribed by: VALENTINA VILLAFUERTE on 02/14/161942 Hydrocodone/Acetaminophen (Hydrocodone-Acetamin 5-325 mg) 1 Each Tablet, 1 EACH PO Q4H Prescribed by: MILLY NI on 01/09/201601 Naproxen (Naprosyn) 500 Mg Tablet, 500 MG PO BID PRN for pain Prescribed by: DANA OMALLEY on 11/28/161401 Ondansetron (Ondansetron Odt) 8 Mg Tab.rapdis, 8 MG PO Q6H PRN for NAUSEA/VOMITING-1ST LINE Prescribed by: DANA OMALLEY on 11/28/161401 Phenazopyridine HCl (Pyridium) 100 Mg Tablet, 100 MG PO Q8H PRN for ain Prescribed by: DANA OMALLEY on 11/28/161401 Sulfamethoxazole/Trimethoprim (Bactrim Ds Tablet) 1 Each Tablet, 1 EACH PO BID Prescribed by: MILLY NI on 01/09/201601 Tamsulosin HCl (Flomax) 0.4 Mg Cap, 0.4 MG PO DAILY Prescribed by: DANA OMALLEY on 11/28/161401 Review of Systems Review of Systems Constitutional: No chills, No fever EENTM: no symptoms reported Respiratory: no symptoms reported Cardiovascular: no symptoms reported Gastrointestinal: no symptoms reported Musculoskeletal: see HPI Skin: see HPI Psychiatric/Neurological: No Symptoms Reported Physical Exam Vital Signs Vital Signs - First Documented 08/10/21 20:28 Temp 37.1 Pulse 100 Resp 14 B/P (MAP) 157/98 (117) Pulse Ox 96 O2 Delivery Room Air Capillary Refill : General Appearance: no apparent distress Cardiovascular: normal peripheral pulses, regular rate, rhythm Respiratory: chest non-tender, lungs clear Extremities: normal range of motion Skin: other (Patient with 3 lacerations from a dog dog bite 1 on the forearm approximately 3 cm, 1 in the antecubital space that has 2 puncture wounds with the largest one being about 1 cm and one in the upper arm is approximately 2 cm. There is erythema around it but no obvious infection. There is bruising around them ) Progress/Results/Core Measures Results/Orders Vital Signs/I&O 08/10/21 20:28 Temp 37.1 Pulse 100 Resp 14 B/P (MAP) 157/98 (117) Pulse Ox 96 O2 Delivery Room Air Progress Progress Note : Progress Note I evaluated patient and came out to discharge him and provide him an empiric antibiotic since his wounds were at high risk for infection. Prior to arrival I talked him about keeping them clean. After I left the room nurse to talk to him about our requirement to call PD and reports a dog bites. Patient reports that that was not happening. That when the nurse left the room he then walked out and left the ER prior to getting discharge instructions and his antibiotics. Departure Impression Primary Impression: Dog bite of arm Qualified Codes: S41.151A - Open bite of right upper arm, initial encounter; W54.0XXA - Bitten by dog, initial encounter Disposition: 07 AGAINST MEDICAL ADVICE Condition: Stable STELLA GREWAL DO Aug 10, 2021 20:26
[2021-08-10 20:28] VITALS: BP 157/98
== END 2021-08-10 20:34 | disposition left against medical advice (07) ==
LOC: EDUNIT# 20:24 → ER FS 20:26
DX: S41.151A Open bite of right upper arm, initial encounter (principal); S51.851A Open bite of right forearm, initial encounter; W54.0XXA Bitten by dog, initial encounter
CPT/HCPCS: 99281

== ENCOUNTER 2021-08-19 11:27 | Emergency (ER) | payer SELFPAY ==
[~2021-08-19] VITALS: Ht 170.2 cm; Wt 90.7 kg
--- NOTE | 2021-08-19 11:42 | ED Abdominal Pain ---
General Stated Complaint: EPIGASTRIC PAIN; VOMITING; LRQ/RT FLANK PAIN Source of Information: Patient Exam Limitations: No Limitations History of Present Illness Date Seen by Provider: Aug 19, 2021 Time Seen by Provider: 11:29 Initial Comments 50yoM with PMH of methamphetamine use and hepatitis C coming in due to 1 day of RUQ abd pain, woke him up about 3am. Had an episode of nb/nb vomiting a couple hours later. 5/10 pain shooting pain to his back. Has not had any meds. Had a normal BM this morning as well. Denies fever, chills, chest pain, SOA, weakness, numbness, rash, or any concerns. Allergies and Home Medications Allergies Coded Allergies: No Known Drug Allergies (Unverified , 02/14/16) Patient Home Medication List Home Medication List Reviewed: Yes Ciprofloxacin HCl (Cipro) 500 Mg Tablet, 500 MG PO BID Prescribed by: VALENTINA VILLAFUERTE on 02/14/161942 Ciprofloxacin HCl (Ciprofloxacin HCl) 500 Mg Tablet, 500 MG PO BID Prescribed by: DANA OMALLEY on 11/28/161401 Ciprofloxacin HCl (Ciprofloxacin HCl) 500 Mg Tablet, 500 MG PO BID Prescribed by: GUALBERTO ORR on 08/19/21 1300 Hydrocodone Bit/Acetaminophen (Lortab 7.5 Mg Tablet) 1 Each Tablet, 1 EACH PO Q6H Prescribed by: VALENTINA VILLAFUERTE on 02/14/161942 Hydrocodone/Acetaminophen (Hydrocodone-Acetamin 5-325 mg) 1 Each Tablet, 1 EACH PO Q4H Prescribed by: MILLY NI on 01/09/20 1602 Metronidazole (Metronidazole) 500 Mg Tablet, 500 MG PO BID Prescribed by: GUALBERTO ORR on 08/19/21 1300 Naproxen (Naprosyn) 500 Mg Tablet, 500 MG PO BID PRN for pain Prescribed by: DANA OMALLEY on 11/28/16 140 Ondansetron (Ondansetron Odt) 8 Mg Tab.rapdis, 8 MG PO Q6H PRN for NAUSEA/VOMITING-1ST LINE Prescribed by: DANA OMALLEY on 11/28/16 140 Phenazopyridine HCl (Pyridium) 100 Mg Tablet, 100 MG PO Q8H PRN for ain Prescribed by: DANA OMALLEY on 11/28/16 1402 Sulfamethoxazole/Trimethoprim (Bactrim Ds Tablet) 1 Each Tablet, 1 EACH PO BID Prescribed by: MILLY NI on 01/09/20 1602 Tamsulosin HCl (Flomax) 0.4 Mg Cap, 0.4 MG PO DAILY Prescribed by: DANA OMALLEY on 11/28/16 1402 Review of Systems Review of Systems Constitutional: No chills, No fever EENTM: No Blurred Vision Respiratory: Denies Cough Cardiovascular: Denies Chest Pain Gastrointestinal: Abdominal Pain, Nausea Genitourinary: Denies Burning Musculoskeletal: no symptoms reported Skin: no symptoms reported Psychiatric/Neurological: No Symptoms Reported Endocrine: No Symptoms Reported Hematologic/Lymphatic: No Symptoms Reported All Other Systems Reviewed Negative Unless Noted: Yes Past Rcfuims-Iopoyi-Cbnexm Hx Patient Social History Substance use?: Yes Substance type: Methamphetamine, Marijuana Immunizations Up To Date Tetanus Booster (TDap): Unknown Seasonal Allergies Seasonal Allergies: No Past Medical History Surgeries: Yes (Kidney stone removal) Respiratory: No Cardiac: No Neurological: No Reproductive Disorders: No Genitourinary: Yes Kidney Stones Gastrointestinal: Yes Hepatitis Musculoskeletal: No Endocrine: No HEENT: No Cancer: No Psychosocial: No Integumentary: No Blood Disorders: No Family Medical History Heart Disease Physical Exam Vital Signs Vital Signs - First Documented 08/19/21 11:42 Temp 37.0 Pulse 100 Resp 19 B/P (MAP) 150/109 (123) O2 Delivery Room Air Capillary Refill : Height/Weight/BMI Height: 5'7" Weight: 221lbs. oz. 100.988762xu; 32.00 BMI Method:Stated General Appearance: WD/WN, no apparent distress HEENT: PERRL/EOMI, normal ENT inspection, pharynx normal Neck: non-tender, full range of motion, supple, normal inspection Respiratory: chest non-tender, lungs clear, normal breath sounds, no respiratory distress, no accessory muscle use Cardiovascular: regular rate, rhythm, no edema, no murmur Gastrointestinal: normal bowel sounds, non tender, soft; No distended, No guarding, No rebound Extremities: normal range of motion, non-tender, normal inspection, no pedal edema, no calf tenderness, normal capillary refill Back: normal inspection, no CVA tenderness, no vertebral tenderness Neurologic/Psychiatric: no motor/sensory deficits, alert, normal mood/affect Skin: normal color, warm/dry Lymphatic: no adenopathy Progress/Results/Core Measures Results/Orders Lab Results Laboratory Tests Test 08/19/21 11:28 08/19/21 11:34 Range/Units Urine Color ORANGE Urine Clarity CLEAR Urine pH 6.0 5-9 Urine Specific [place] 1.025 H 1.016-1.022 Urine Protein NEGATIVE NEGATIVE Urine Glucose (UA) TRACE H NEGATIVE Urine Ketones TRACE H NEGATIVE Urine Nitrite NEGATIVE NEGATIVE Urine Bilirubin 1+ H NEGATIVE Urine Urobilinogen 4.0 < = 1.0 MG/DL Urine Leukocyte Esterase NEGATIVE NEGATIVE Urine RBC (Auto) NEGATIVE NEGATIVE Urine RBC 0-2 /HPF Urine WBC RARE /HPF Urine Squamous Epithelial Cells RARE /HPF Urine Crystals NONE /LPF Urine Bacteria NEGATIVE /HPF Urine Casts NONE /LPF Urine Mucus MODERATE H /LPF Urine Culture Indicated NO White Blood Count 3.8 L 4.3-11.0 10^3/uL Red Blood Count 4.83 4.30-5.52 10^6/uL Hemoglobin 14.5 13.3-17.7 g/dL Hematocrit 43 40-54 % Mean Corpuscular Volume 89 80-99 fL Mean Corpuscular Hemoglobin 30 25-34 pg Mean Corpuscular Hemoglobin Concent 34 32-36 g/dL Red Cell Distribution Width 14.8 H 10.0-14.5 % Platelet Count 57 L 130-400 10^3/uL Mean Platelet Volume 10.7 9.0-12.2 fL Immature Granulocyte % (Auto) 0 % Neutrophils (%) (Auto) 83 H 42-75 % Lymphocytes (%) (Auto) 9 L 12-44 % Monocytes (%) (Auto) 7 0-12 % Eosinophils (%) (Auto) 1 0-10 % Basophils (%) (Auto) 0 0-10 % Neutrophils # (Auto) 3.2 1.8-7.8 10^3/uL Lymphocytes # (Auto) 0.4 L 1.0-4.0 10^3/uL Monocytes # (Auto) 0.3 0.0-1.0 10^3/uL Eosinophils # (Auto) 0.0 0.0-0.3 10^3/uL Basophils # (Auto) 0.0 0.0-0.1 10^3/uL Immature Granulocyte # (Auto) 0.0 0.0-0.1 10^3/uL Prothrombin Time 14.9 H 12.2-14.7 SEC INR Comment 1.1 0.8-1.4 Sodium Level 139 135-145 MMOL/L Potassium Level 3.7 3.6-5.0 MMOL/L Chloride Level 101 98-107 MMOL/L Carbon Dioxide Level 27 21-32 MMOL/L Anion Gap 11 5-14 MMOL/L Blood Urea Nitrogen 10 7-18 MG/DL Creatinine 0.85 0.60-1.30 MG/DL Estimat Glomerular Filtration Rate 107 BUN/Creatinine Ratio 12 Glucose Level 107 H 70-105 MG/DL Calcium Level 8.9 8.5-10.1 MG/DL Corrected Calcium 8.7 8.5-10.1 MG/DL Total Bilirubin 3.5 H 0.1-1.0 MG/DL Aspartate Amino Transf (AST/SGOT) 54 H 5-34 U/L Alanine Aminotransferase (ALT/SGPT) 37 0-55 U/L Alkaline Phosphatase 72 40-136 U/L Total Protein 7.6 6.4-8.2 GM/DL Albumin 4.3 3.2-4.5 GM/DL Lipase 37 8-78 U/L My Orders Orders - GUALBERTO ORR MD Cbc With Automated Diff (08/19/21 11:46) Comprehensive Metabolic Panel (08/19/21 11:46) Lipase (08/19/21 11:46) Ua Culture If Indicated (08/19/21 11:46) Protime With Inr (08/19/21 11:46) Ketorolac Injection (Toradol Injection) (08/19/21 11:46) Ondansetron Injection (Zofran Injectio (08/19/21 12:00) Ct Abdomen/Pelvis Wo (08/19/21 11:51) Ciprofloxacin Tablet (Cipro Tablet) (08/19/21 13:01) Metronidazole Tablet (Flagyl Tablet) (08/19/21 13:01) Medications Given in ED Current Medications Medications Dose Ordered Sig/Maryellen Route Start Time Stop Time Status Last Admin Dose Admin Ondansetron HCl 4 mg ONCE ONCE IVP 08/19/21 12:00 08/19/21 12:01 DC 08/19/21 11:56 4 MG Vital Signs/I&O 08/19/21 11:42 Temp 37.0 Pulse 100 Resp 19 B/P (MAP) 150/109 (123) O2 Delivery Room Air Progress Progress Note : Progress Note 50-year-old male with above history coming in due to flank pain and abdominal pain with nausea. ABCs were intact and vitals were stable on presentation. Physical exam with some abdominal tenderness and right flank tenderness but no signs of peritonitis. An IV was placed and labs were drawn and were significant for a total bilirubin of 3.5 similar to his bilirubin 2 years ago 3.4. He does have chronic hepatitis C. Liver function otherwise normal with an INR of 1.1. White blood cell count slightly low. Urinalysis with bilirubin but no signs of infection or blood. CT abdomen pelvis without contrast ordered given this was this exact presentation during 2 other visits in 2015 and 2016, both times he had kidney stones that were obstructing. CT imaging more consistent with enteritis. We will treat him with antibiotics in case there is infection. He was then discharged home in stable condition with strict return precautions. Diagnostic Imaging Diagonstic Imaging: CT (abd pelv) Comments [facility]. [place], [place] NAME: ERICA PURVIS [facility] REC#: [id number] PT STATUS: REG ER : 1970 PHYSICIAN: GUALBERTO ORR MD ADMIT DATE: 08/19/21/ER FS Draft Date of Exam:08/19/21 CT ABDOMEN/PELVIS WO PROCEDURE: CT abdomen and pelvis without contrast. TECHNIQUE: Multiple contiguous axial images were obtained through the abdomen and pelvis without the use of intravenous contrast. Auto Exposure Controls were utilized during the CT exam to meet ALARA standards for radiation dose reduction. INDICATION: Right-sided pain COMPARISON: 11/28/2016 FINDINGS: Mild right basilar scarring and/or atelectasis. Moderate sized hiatal hernia. Paraesophageal varices are present. Nodular contour of the liver. The spleen is enlarged. The spleen measures over 21 cm in length. Cholelithiasis. The gallbladder is mildly distended. Splenic varices are present. The adrenal glands are unremarkable. The stomach is distended. The bilateral kidneys and ureters are unremarkable. Mild vascular calcifications without aneurysmal dilatation of the abdominal aorta. The appendix is unremarkable. Small fat-containing umbilical hernia. The urinary bladder is decompressed, therefore not well-evaluated. Moderate-sized fat-containing left inguinal hernia. Moderate colonic diverticulosis without CT evidence of diverticulitis. Multiple loops of small bowel are fluid-filled with several loops of small bowel being at the upper limits of normal in size. No bowel obstruction or pneumatosis. Scattered varices are identified throughout the abdomen and pelvis. No significant adenopathy, free air, or free fluid within abdomen or pelvis. Mild scattered osseous degenerative changes without acute osseous abnormality. IMPRESSION: Cirrhotic morphology of the liver with associated splenomegaly and extensive varices formation. Cholelithiasis. Fluid-filled prominent loops of small bowel without focal transition point. This suggests the possibility of underlying enteritis. No bowel obstruction. Colonic diverticulosis without CT evidence of diverticulitis. Moderate sized hiatal hernia. Dictated on workstation # [id number] Dict: 08/19/21 1226 Trans: 08/19/21 1248 [facility] [id number] Interpreted by: ZORAN DEJESUS MD Electronically signed by: Departure Impression Primary Impression: Enteritis Disposition: 01 HOME, SELF-CARE Condition: Stable Departure-Patient Inst. Decision time for Depature: 12:55 Referrals: NO,LOCAL PHYSICIAN (PCP/Family) Primary Care Physician Patient Instructions: Colitis (DC) Add. Discharge Instructions: You were seen in the emergency department for abdominal pain. You do have some inflammation in your small intestines and colon which could be infection. We will start you on 2 different antibiotics which she will take for the next week. Take ibuprofen and/or Tylenol for pain. Follow-up with your regular doctor in 1 week if you are not feeling better. You got your first dose of antibiotics in the ER, so you will not be due for do se until tonight. Scripts Metronidazole (Metronidazole) 500 Mg Tablet 500 MG PO BID for 7 Days, #14 TAB Prov: GUALBERTO ORR MD 08/19/21 Ciprofloxacin HCl (Ciprofloxacin HCl) 500 Mg Tablet 500 MG PO BID for 7 Days, #14 TAB Prov: GUALBERTO ORR MD 08/19/21 GUALBERTO ORR MD Aug 19, 2021 11:42
[2021-08-19] MEDS ORDERED: KETOROLAC 30 MG/ML VIAL IVP STA (11:46)
[2021-08-19 11:55] LABS: GLUCOSE, URINE (UA) TRACE (NEGATIVE); KETONES,URINE TRACE (NEGATIVE); LEUKOCYTE ESTERASE ,URINE NEGATIVE (NEGATIVE); NITRITE,URINE NEGATIVE (NEGATIVE); PROTEIN,URINE NEGATIVE (NEGATIVE)
[2021-08-19] MEDS ORDERED: ONDANSETRON 4 MG/2 ML (SDV) Z0FRAN IVP ONE (12:00)
[2021-08-19 12:06] LABS: BASOPHILS % (AUTO) 0 % (0-10); EOSINOPHILS % (AUTO) 1 % (0-10); HEMATOCRIT 43 % (40-54); HEMOGLOBIN 14.5 g/dL (13.3-17.7); LYMPHOCYTES # (AUTO) 0.4 10^3/uL (1.0-4.0); LYMPHOCYTES % (AUTO) 9 % (12-44); MEAN CORPUSCULAR HEMOGLOBIN 30 pg (25-34); MEAN CORPUSCULAR HGB CONC 34 g/dL (32-36); MEAN CORPUSCULAR VOLUME 89 fL (80-99); MEAN PLATELET VOLUME 10.7 fL (9.0-12.2); MONOCYTES # (AUTO) 0.3 10^3/uL (0.0-1.0); MONOCYTES % (AUTO) 7 % (0-12); NEUTROPHILS # (AUTO) 3.2 10^3/uL (1.8-7.8); NEUTROPHILS % (AUTO) 83 % (42-75); PLATELET COUNT 57 10^3/uL (130-400); WHITE BLOOD COUNT 3.8 10^3/uL (4.3-11.0)
[2021-08-19 12:07] LABS: INR 1.1 (0.8-1.4); PROTHROMBIN TIME PATIENT 14.9 SEC (12.2-14.7)
[2021-08-19 12:11] LABS: BACTERIA,URINE NEGATIVE /HPF; BILIRUBIN,URINE 1+ (NEGATIVE); RBC,URINE 0-2 /HPF; SQUAMOUS EPITHELIAL CELL,UR RARE /HPF; WBC,URINE RARE /HPF
[2021-08-19 12:16] LABS: POTASSIUM 3.7 MMOL/L (3.6-5.0)
[2021-08-19 12:17] LABS: ALBUMIN 4.3 GM/DL (3.2-4.5); BILIRUBIN,TOTAL 3.5 MG/DL (0.1-1.0); CALCIUM 8.9 MG/DL (8.5-10.1); CREATININE SERUM 0.85 MG/DL (0.60-1.30); TOTAL PROTEIN 7.6 GM/DL (6.4-8.2)
[2021-08-19 12:19] LABS: CLARITY,URINE CLEAR; COLOR,URINE ORANGE
--- NOTE | 2021-08-19 12:48 | Diagnostic Imaging Report ---
PROCEDURE: CT abdomen and pelvis without contrast. TECHNIQUE: Multiple contiguous axial images were obtained through the abdomen and pelvis without the use of intravenous contrast. Auto Exposure Controls were utilized during the CT exam to meet ALARA standards for radiation dose reduction. INDICATION: Right-sided pain COMPARISON: 11/28/2016 FINDINGS: Mild right basilar scarring and/or atelectasis. Moderate sized hiatal hernia. Paraesophageal varices are present. Nodular contour of the liver. The spleen is enlarged. The spleen measures over 21 cm in length. Cholelithiasis. The gallbladder is mildly distended. Splenic varices are present. The adrenal glands are unremarkable. The stomach is distended. The bilateral kidneys and ureters are unremarkable. Mild vascular calcifications without aneurysmal dilatation of the abdominal aorta. The appendix is unremarkable. Small fat-containing umbilical hernia. The urinary bladder is decompressed, therefore not well-evaluated. Moderate-sized fat-containing left inguinal hernia. Moderate colonic diverticulosis without CT evidence of diverticulitis. Multiple loops of small bowel are fluid-filled with several loops of small bowel being at the upper limits of normal in size. No bowel obstruction or pneumatosis. Scattered varices are identified throughout the abdomen and pelvis. No significant adenopathy, free air, or free fluid within abdomen or pelvis. Mild scattered osseous degenerative changes without acute osseous abnormality. IMPRESSION: Cirrhotic morphology of the liver with associated splenomegaly and extensive varices formation. Cholelithiasis. Fluid-filled prominent loops of small bowel without focal transition point. This suggests the possibility of underlying enteritis. No bowel obstruction. Colonic diverticulosis without CT evidence of diverticulitis. Moderate sized hiatal hernia. Dictated by: Dictated on workstation # [id number]
[2021-08-19] MEDS ORDERED: CIPR500T5 PO (13:00)
[2021-08-19] MEDS ORDERED: METR-145 PO (13:00)
[2021-08-19] MEDS ORDERED: CIPROFLOXACIN 500 MG (CIPRO) TABLET PO STA (13:01)
[2021-08-19] MEDS ORDERED: metroNIDAZOLE 500 MG (FLAGYL) TAB PO STA (13:01)
[2021-08-19 13:12] VITALS: BP 137/91
== END 2021-08-19 13:12 | disposition home or self-care (01) ==
LOC: EDUNIT# 11:27 → ER FS 11:28
DX: K52.9 Noninfective gastroenteritis and colitis, unspecified (principal)
CPT/HCPCS: 36415; 74176; 80053; 81000; 83690; 85025; 85610

== ENCOUNTER 2023-04-11 09:31 | Observation (INO) | payer SELFPAY ==
[~2023-04-11] VITALS: Ht 171 cm; Wt 96.7 kg
[2023-04-11] VITALS (8 sets, daily range): BP systolic 104–159; BP diastolic 55–98
[~2023-04-11 09:31] MED LIST changes: +METR-145 PO
--- NOTE | 2023-04-11 09:42 | ED General ---
General Chief Complaint: Chest Wall Stated Complaint: VOMITING BLOOD Source of Information: Patient, EMS History of Present Illness Date Seen by Provider: Apr 11, 2023 Time Seen by Provider: 09:30 Initial Comments Patient is a 52-year-old male who presents to the emergency room by EMS chief complaint of vomiting blood. Patient states that he got up this morning, ate an oatmeal cream pie around 6 or 630 this morning, shortly afterward felt the urge to have a bowel movement and then after that became nauseous and sweaty, vomited blood. EMS reports approximately 100 to 200 mL of bright red blood at the scene . Patient denies any history of recent black stool or bloody stool. He has a history of hepatitis C since about 2011, recently started treatment about 3 weeks ago. He states he is followed by a practitioner at [facility] in [place]. He had blood work done on Thursday which showed undetectable levels of hepatitis C. He has never had upper endoscopy or lower colonoscopy. His only medications are those for hepatitis C. He denies any abdominal pain. He received a liter of fluids prior to arrival per EMS as well as 4 mg of Zofran. He complains of feeling a little thirsty currently. He does smoke cigarettes. No alcohol. No illicit drugs, he has been clean for 2 years. He had no vomiting during transport. He did have a brief drop in his blood pressure to the upper 90s systolic. Responded to fluids. Timing/Duration: 1-3 Hours Severity: Moderate Associated Systoms: Nausea/Vomiting, Weakness Allergies and Home Medications Allergies Coded Allergies: No Known Drug Allergies (Unverified , 02/14/16) Patient Home Medication List Home Medication List Reviewed: Yes Ciprofloxacin HCl (Cipro) 500 Mg Tablet, 500 MG PO BID Prescribed by: VALENTINA VILLAFUERTE on 02/14/161942 Ciprofloxacin HCl (Ciprofloxacin HCl) 500 Mg Tablet, 500 MG PO BID Prescribed by: DANA OMALLEY on 11/28/16 1402 Ciprofloxacin HCl (Ciprofloxacin HCl) 500 Mg Tablet, 500 MG PO BID Prescribed by: GUALBERTO ORR on 08/19/21 1300 Hydrocodone Bit/Acetaminophen (Lortab 7.5 Mg Tablet) 1 Each Tablet, 1 EACH PO Q6H Prescribed by: VALENTINA VILLAFUERTE on 02/14/161942 Hydrocodone/Acetaminophen (Hydrocodone-Acetamin 5-325 mg) 1 Each Tablet, 1 EACH PO Q4H Prescribed by: MILLY NI on 01/09/20 1602 Metronidazole (Metronidazole) 500 Mg Tablet, 500 MG PO BID Prescribed by: GUALBERTO ORR on 08/19/21 1300 Naproxen (Naprosyn) 500 Mg Tablet, 500 MG PO BID PRN for pain Prescribed by: DANA OMALLEY on 11/28/16 140 Ondansetron (Ondansetron Odt) 8 Mg Tab.rapdis, 8 MG PO Q6H PRN for NAUSEA/VOMITING-1ST LINE Prescribed by: DANA OMALLEY on 11/28/16 140 Phenazopyridine HCl (Pyridium) 100 Mg Tablet, 100 MG PO Q8H PRN for ain Prescribed by: DANA OMALLEY on 11/28/16 140 Sulfamethoxazole/Trimethoprim (Bactrim Ds Tablet) 1 Each Tablet, 1 EACH PO BID Prescribed by: MILLY NI on 01/09/20 160 Tamsulosin HCl (Flomax) 0.4 Mg Cap, 0.4 MG PO DAILY Prescribed by: DANA OMALLEY on 11/28/16 140 Review of Systems Review of Systems Constitutional: see HPI EENTM: no symptoms reported Respiratory: no symptoms reported Cardiovascular: no symptoms reported Gastrointestinal: hematemesis Genitourinary: no symptoms reported Musculoskeletal: no symptoms reported Skin: no symptoms reported Psychiatric/Neurological: No Symptoms Reported Past Zpwmoce-Kxrfxt-Amksav Hx Immunizations Up To Date Tetanus Booster (TDap): Unknown Seasonal Allergies Seasonal Allergies: No Past Medical History Surgeries: Yes (Kidney stone removal) Respiratory: No Cardiac: No Neurological: No Reproductive Disorders: No Genitourinary: Yes Kidney Stones Gastrointestinal: Yes Hepatitis Musculoskeletal: No Endocrine: No HEENT: No Cancer: No Psychosocial: No Integumentary: No Blood Disorders: No Family Medical History Heart Disease Physical Exam Vital Signs Vital Signs - First Documented 04/11/23 09:34 Temp 36.7 Pulse 89 Resp 18 B/P (MAP) 110/65 (80) Pulse Ox 100 O2 Delivery Room Air Capillary Refill : Height, Weight, BMI Height: 5'7" Weight: 221lbs. oz. 100.546540bl; 31.00 BMI Method:Stated General Appearance: No Apparent Distress, WD/WN Eyes: Bilateral Eye Normal Inspection, Bilateral Eye PERRL, Bilateral Eye EOMI HEENT: PERRL/EOMI, Moist Mucous Membranes Neck: Normal Inspection Respiratory: Lungs Clear, Normal Breath Sounds, No Accessory Muscle Use, No Respiratory Distress Cardiovascular: Regular Rate, Rhythm Gastrointestinal: Normal Bowel Sounds, Soft, Hepatomegaly Extremity: Normal Inspection, Normal Range of Motion, No Pedal Edema Neurologic/Psychiatric: Alert, Oriented x3, No Motor/Sensory Deficits, Normal Mood/Affect Skin: Warm/Dry, Jaundice (mild) Progress/Results/Core Measures Suspected Sepsis SIRS Temperature: Pulse: Respiratory Rate: Laboratory Tests 04/11/23 09:40: White Blood Count 5.8 Blood Pressure / Mean: Laboratory Tests 04/11/23 09:40: Creatinine 0.81, INR Comment 1.5H, Platelet Count 62L, Total Bilirubin 2.5H Results/Orders Lab Results Laboratory Tests Test 04/11/23 09:40 Range/Units White Blood Count 5.8 4.3-11.0 10^3/uL Red Blood Count 2.73 L 4.30-5.52 10^6/uL Hemoglobin 8.7 L 13.3-17.7 g/dL Hematocrit 28 L 40-54 % Mean Corpuscular Volume 101 H 80-99 fL Mean Corpuscular Hemoglobin 32 25-34 pg Mean Corpuscular Hemoglobin Concent 32 32-36 g/dL Red Cell Distribution Width 16.5 H 10.0-14.5 % Platelet Count 62 L 130-400 10^3/uL Mean Platelet Volume 10.1 9.0-12.2 fL Immature Granulocyte % (Auto) 1 % Neutrophils (%) (Auto) 74 42-75 % Lymphocytes (%) (Auto) 13 12-44 % Monocytes (%) (Auto) 10 0-12 % Eosinophils (%) (Auto) 2 0-10 % Basophils (%) (Auto) 0 0-10 % Neutrophils # (Auto) 4.3 1.8-7.8 10^3/uL Lymphocytes # (Auto) 0.8 L 1.0-4.0 10^3/uL Monocytes # (Auto) 0.6 0.0-1.0 10^3/uL Eosinophils # (Auto) 0.1 0.0-0.3 10^3/uL Basophils # (Auto) 0.0 0.0-0.1 10^3/uL Immature Granulocyte # (Auto) 0.0 0.0-0.1 10^3/uL Percent Immature Platelet Fraction 3.1 0.0-7.6 % Prothrombin Time 18.4 H 12.2-14.7 SEC INR Comment 1.5 H 0.8-1.4 Activated Partial Thromboplast Time 32 24-35 SEC Sodium Level 138 135-145 MMOL/L Potassium Level 4.2 3.6-5.0 MMOL/L Chloride Level 112 H 98-107 MMOL/L Carbon Dioxide Level 23 21-32 MMOL/L Anion Gap 3 L 5-14 MMOL/L Blood Urea Nitrogen 11 7-18 MG/DL Creatinine 0.81 0.60-1.30 MG/DL Estimat Glomerular Filtration Rate 107 BUN/Creatinine Ratio 14 Glucose Level 128 H 70-105 MG/DL Calcium Level 7.3 L 8.5-10.1 MG/DL Corrected Calcium 8.4 L 8.5-10.1 MG/DL Total Bilirubin 2.5 H 0.1-1.0 MG/DL Aspartate Amino Transf (AST/SGOT) 17 5-34 U/L Alanine Aminotransferase (ALT/SGPT) 10 0-55 U/L Alkaline Phosphatase 44 40-136 U/L Total Protein 5.0 L 6.4-8.2 GM/DL Albumin 2.6 L 3.2-4.5 GM/DL My Orders Orders - ROSANGELA MARTINEZ MD Ed Iv/Invasive Line Start (04/11/23 09:42) Cbc And Automated Diff (04/11/23 09:42) Comprehensive Metabolic Panel (04/11/23 09:42) Pantoprazole Injection (Pantoprazole Inj (04/11/23 09:45) Type And Screen (04/11/23 09:43) Protime With Inr (04/11/23 09:44) Partial Thromboplastin Time (04/11/23 09:44) Medications Given in ED Current Medications Medications Dose Ordered Sig/Maryellen Route Start Time Stop Time Status Last Admin Dose Admin Pantoprazole 80 mg ONCE ONCE IV 04/11/23 09:45 04/11/23 09:46 DC 04/11/23 09:49 80 MG Vital Signs/I&O 04/11/23 09:34 Temp 36.7 Pulse 89 Resp 18 B/P (MAP) 110/65 (80) Pulse Ox 100 O2 Delivery Room Air Capillary Refill : Progress Note : Time: 10:14 Progress Note Patient seen and evaluated by me. Evaluation today includes history and physical exam with CBC, Chem-12, coag profile. Pertinent physical exam findings well-developed well-nourished male, no acute distress. Heart is regular, mildly tachycardic heart rate between 95 and 100. Lungs are clear. Abdomen is soft minimal tenderness in the epigastrium and left upper quadrant. Difficult to palpate liver margin secondary to prominent abdomen. Multiple homemade tattoos. He is skin does appear mildly jaundiced. No scleral icterus. Mucous membranes are moist. No lower extremity edema. Mentating normally. Pleasant, in no acute distress. Differential diagnosis includes upper GI bleeding due to esophageal varices versus peptic ulcer disease. Labs independently reviewed and interpreted by me. His CBC shows a white blood cell count of 5.8, RBCs are 2.73 with a hemoglobin of 8.7, hematocrit of 28, platelet count of 62 which appears on review of the medical record to be about his baseline. His comprehensive metabolic panel shows a glucose of 128 with normal electrolytes. His calcium is a little low at 8.4. His total bili is 2.5 with an AST of 17, ALT of 10 and alk phos of 44. Coags are little out with an elevated PT of 18.4, INR of 1.5 and normal PTT of 32. Patient received 1 L of normal saline per EMS prior to arrival and completed a second liter here in the department. He has not had any further episodes of nausea or vomiting in the department. Dr. Amos has been in the emergency department to evaluate the patient and would be happy to consult for possible upper endoscopy as needed. As the patient's hemoglobin is 8.7 with active bleeding this morning we will put him upstairs on the fifth floor on cardiac stepdown. He does not require ICU care at this time. His blood pressure is stable at 110/71 with a MAP of 82, heart rate is 96, respirations 15 normal room air oxygen saturations. Will discuss with Dr. Chacon on for the [facility] service for admission observation. Departure Communication (Admissions) Time/Spoke to Admitting Phy: 10:[address] Chacon - [facility] Time/Spoke to Consulting Phy: 10:[address] Amos - gen surg - will admit patient overnight for obs/possible EGD Impression Primary Impression: Upper GI bleeding Additional Impression: History of hepatitis C virus infection Disposition: ADMITTED INPATIENT Condition: Stable Admissions Decision to Admit Reason: Admit from ER (General) Decision to Admit/Date: Apr 11, 2023 Time/Decision to Admit Time: 10:13 Departure-Patient Inst. Referrals: NO,LOCAL PHYSICIAN (PCP/Family) Primary Care Physician Copy Copies To 1: SOLOMON HUERTA KATHRYN M MD Apr 11, 2023 09:42
[2023-04-11] MEDS ORDERED: PANTOPRAZOLE INJECTION 40 MG VIAL IV ONE (09:45)
[2023-04-11 09:48] LABS: NEUTROPHILS % (AUTO) 74 % (42-75)
[2023-04-11 09:50] LABS: BASOPHILS % (AUTO) 0 % (0-10); EOSINOPHILS # (AUTO) 0.1 10^3/uL (0.0-0.3); EOSINOPHILS % (AUTO) 2 % (0-10); HEMATOCRIT 28 % (40-54); HEMOGLOBIN 8.7 g/dL (13.3-17.7); LYMPHOCYTES # (AUTO) 0.8 10^3/uL (1.0-4.0); LYMPHOCYTES % (AUTO) 13 % (12-44); MEAN CORPUSCULAR HEMOGLOBIN 32 pg (25-34); MEAN CORPUSCULAR HGB CONC 32 g/dL (32-36); MEAN CORPUSCULAR VOLUME 101 fL (80-99); MEAN PLATELET VOLUME 10.1 fL (9.0-12.2); MONOCYTES # (AUTO) 0.6 10^3/uL (0.0-1.0); MONOCYTES % (AUTO) 10 % (0-12); NEUTROPHILS # (AUTO) 4.3 10^3/uL (1.8-7.8); PLATELET COUNT 62 10^3/uL (130-400); WHITE BLOOD COUNT 5.8 10^3/uL (4.3-11.0)
[2023-04-11 09:57] LABS: ALBUMIN 2.6 GM/DL (3.2-4.5); INR 1.5 (0.8-1.4); PROTHROMBIN TIME PATIENT 18.4 SEC (12.2-14.7)
[2023-04-11 09:58] LABS: POTASSIUM 4.2 MMOL/L (3.6-5.0)
[2023-04-11 09:59] LABS: CALCIUM 7.3 MG/DL (8.5-10.1)
[2023-04-11 10:02] LABS: BILIRUBIN,TOTAL 2.5 MG/DL (0.1-1.0)
[2023-04-11 10:04] LABS: CREATININE SERUM 0.81 MG/DL (0.60-1.30)
--- NOTE | 2023-04-11 10:18 | Consultation - Surgery ---
APRILMARLEE 04/11/23 1018: History of Present Illness History of Present Illness Patient Consulted On(katey/time) 04/11/23 10:13 Date Seen by Provider: Apr 11, 2023 Time Seen by Provider: 10:00 History of Present Illness This is a 52 yo male with pmh of liver cirrhosis stage 4, chronic hepatitis C, gallstones currently that presents with vomiting blood this morning after eating a oatmeal cream pie for breakfast around 6am. EMS states that pt had about 200mL of BRB. Recently started Hep C treatment 3 weeks ago and only other medications currently taking are ibuprofen and tylenol for pain control of a hernia. Pt states that he has taken ibuprofen for pain control for the past few months. Patient is currently nauseous. Current tobacco smoker, no EtOH, no rec drug use currently. 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 Pt stated that after he finishes Hep C treatment, his PCP will send referral to [facility] for liver transplantation. NKDA. No history of colonoscopy or EGD. Never has had symptoms like this before. Last Hep C blood test on thursday this last week showed undetectable Hep c antigen. Denies bloody or black tarry stools. Allergies and Home Medications Allergies Coded Allergies: No Known Drug Allergies (Unverified , 02/14/16) Patient Home Medication List Home Medication List Reviewed: Yes Ciprofloxacin HCl (Cipro) 500 Mg Tablet, 500 MG PO BID Prescribed by: VALENTINA VILLAFUERTE on 02/14/161942 Ciprofloxacin HCl (Ciprofloxacin HCl) 500 Mg Tablet, 500 MG PO BID Prescribed by: DANA OMALLEY on 11/28/16 1402 Ciprofloxacin HCl (Ciprofloxacin HCl) 500 Mg Tablet, 500 MG PO BID Prescribed by: GUALBERTO ORR on 08/19/21 1300 Hydrocodone Bit/Acetaminophen (Lortab 7.5 Mg Tablet) 1 Each Tablet, 1 EACH PO Q6H Prescribed by: VALENTINA VILLAFUERTE on 02/14/161942 Hydrocodone/Acetaminophen (Hydrocodone-Acetamin 5-325 mg) 1 Each Tablet, 1 EACH PO Q4H Prescribed by: MILLY NI on 01/09/20 1602 Metronidazole (Metronidazole) 500 Mg Tablet, 500 MG PO BID Prescribed by: GUALBERTO ORR on 08/19/21 1300 Naproxen (Naprosyn) 500 Mg Tablet, 500 MG PO BID PRN for pain Prescribed by: DANA OMALLEY on 11/28/16 140 Ondansetron (Ondansetron Odt) 8 Mg Tab.rapdis, 8 MG PO Q6H PRN for NAUSEA /VOMITING-1ST LINE Prescribed by: DANA OMALLEY on 11/28/16 140 Phenazopyridine HCl (Pyridium) 100 Mg Tablet, 100 MG PO Q8H PRN for ain Prescribed by: DANA OMALLEY on 11/28/16 140 Sulfamethoxazole/Trimethoprim (Bactrim Ds Tablet) 1 Each Tablet, 1 EACH PO BID Prescribed by: MILLY NI on 01/09/20 160 Tamsulosin HCl (Flomax) 0.4 Mg Cap, 0.4 MG PO DAILY Prescribed by: DANA OMALLEY on 11/28/16 140 Past Knwdyvj-Wpcvzn-Kkrlbh Hx Patient Social History Drug of Choice: intravenous methamphetamines, marijuana Smoking Status: Current Everyday Smoker Type Used: Cigarettes 2nd Hand Smoke Exposure: Yes Recent Hopitalizations: No Alcohol Use?: No Immunizations Up To Date Tetanus Booster (TDap): Unknown Seasonal Allergies Seasonal Allergies: No Surgeries History of Surgeries: Yes (Kidney stone removal) Respiratory History of Respiratory Disorde: No Cardiovascular History of Cardiac Disorders: No Neurological History of Neurological Disord: No Reproductive System Hx Reproductive Disorders: No Genitourinary History of Genitourinary Disor: Yes Genitourinary Disorders: Kidney Stones Gastrointestinal History of Gastrointestinal Di: Yes Gastrointestinal Disorders: Hepatitis (Hepatitis C) Musculoskeletal History of Musculoskeletal Dis: No Endocrine History of Endocrine Disorders: No HEENT History of HEENT Disorders: No Cancer History of Cancer: No Psychosocial History of Psychiatric Problem: No Integumentary History of Skin or Integumenta: No Blood Transfusions History of Blood Disorders: No Family Medical History Significant Family History: Heart Disease Review of Systems-General Constitutional: No fever; weakness EENTM: No hearing loss, No ear pain Respiratory: No cough, No short of breath Cardiovascular: No chest pain, No palpitations Gastrointestinal: abdominal pain (States that he has 2 hernias (umbilical and RLQ)); No dysphagia; hematemesis; No melena; nausea Genitourinary: No discharge, No dysuria, No frequency Musculoskeletal: No back pain, No joint pain Skin: No dryness, No rash Psychiatric/Neurological: Denies Headache, Denies Paresthesia Physical Exam-General Problems Physical Exam Vital Signs Vital Signs - First Documented 04/11/23 09:34 Temp 36.7 Pulse 89 Resp 18 B/P (MAP) 110/65 (80) Pulse Ox 100 O2 Delivery Room Air Capillary Refill : Less Than 3 Seconds General Appearance: WD/WN, no apparent distress HEENT: PERRL/EOMI, pharynx normal Neck: non-tender, supple Respiratory: chest non-tender, lungs clear, no respiratory distress Cardiovascular: regular rate, rhythm, no edema, no murmur Gastrointestinal: soft, hernia (umbilical), hepatomegaly Extremities: no pedal edema, no calf tenderness Neurologic/Psychiatric: no motor/sensory deficits, alert, normal mood/affect, oriented x 3 Skin: warm/dry, jaundice Lymphatic: no adenopathy Data Review Labs Laboratory Tests 04/11/23 09:40: White Blood Count 5.8, Red Blood Count 2.73L, Hemoglobin 8.7L, Hematocrit 28L, Mean Corpuscular Volume 101H, Mean Corpuscular Hemoglobin 32, Mean Corpuscular Hemoglobin Concent 32, Red Cell Distribution Width 16.5H, Platelet Count 62L, Mean Platelet Volume 10.1, Immature Granulocyte % (Auto) 1, Neutrophils (%) (Auto) 74, Lymphocytes (%) (Auto) 13, Monocytes (%) (Auto) 10, Eosinophils (%) (Auto) 2, Basophils (%) (Auto) 0, Neutrophils # (Auto) 4.3, Lymphocytes # (Auto) 0.8L, Monocytes # (Auto) 0.6, Eosinophils # (Auto) 0.1, Basophils # (Auto) 0.0, Immature Granulocyte # (Auto) 0.0, Percent Immature Platelet Fraction 3.1, Prothrombin Time 18.4H, INR Comment 1.5H, Activated Partial Thromboplast Time 32, Sodium Level 138, Potassium Level 4.2, Chloride Level 112H, Carbon Dioxide Level 23, Anion Gap 3L, Blood Urea Nitrogen 11, Creatinine 0.81, Estimat Glomerular Filtration Rate 107, BUN/Creatinine Ratio 14, Glucose Level 128H, Calcium Level 7.3L, Corrected Calcium 8.4L, Total Bilirubin 2.5H, Aspartate Amino Transf (AST/SGOT) 17, Alanine Aminotransferase (ALT/SGPT) 10, Alkaline Phosphatase 44, Total Protein 5.0L, Albumin 2.6L Assessment/Plan Assessment/Plan Assessment/Plan Upper GI Bleed- possibly Peptic Ulcer Disease secondary to NSAID use Liver cirrhosis stage 4 Chronic Hepatitis C Clear liquids diet today Protonix IV fluids Monitor Hgb- 8.7 BART MADRID DO 04/11/23 1231: History of Present Illness History of Present Illness History of Present Illness consult for anemia/ hematemesis 52 year old male with liver cirrhosis. Woke up this morning and ate oatmeal cream pie. Had to use the restroom, and had nausea and through up about 200 mL of bright red blood. Has not thrown up since. Only one episode. Has been anemic recently based off of labwork. Has been on Ibuprfen for month. Has pain from hernias. Being treated for Hep c currently and planning to see for transplant he states. Never had EGD or colonoscopy before. Allergies and Home Medications Allergies Coded Allergies: No Known Drug Allergies (Unverified , 02/14/16) Patient Home Medication List Home Medication List Reviewed: Yes Ciprofloxacin HCl (Cipro) 500 Mg Tablet, 500 MG PO BID Prescribed by: VALENTINA VILLAFUERTE on 02/14/161942 Ciprofloxacin HCl (Ciprofloxacin HCl) 500 Mg Tablet, 500 MG PO BID Prescribed by: DANA OMALLEY on 11/28/16 1402 Ciprofloxacin HCl (Ciprofloxacin HCl) 500 Mg Tablet, 500 MG PO BID Prescribed by: GUALBERTO ORR on 08/19/21 1300 Hydrocodone Bit/Acetaminophen (Lortab 7.5 Mg Tablet) 1 Each Tablet, 1 EACH PO Q6H Prescribed by: VALENTINA VILLAFUERTE on 02/14/161942 Hydrocodone/Acetaminophen (Hydrocodone-Acetamin 5-325 mg) 1 Each Tablet, 1 EACH PO Q4H Prescribed by: MILLY NI on 01/09/20 1602 Metronidazole (Metronidazole) 500 Mg Tablet, 500 MG PO BID Prescribed by: GUALBERTO ORR on 08/19/21 1300 Naproxen (Naprosyn) 500 Mg Tablet, 500 MG PO BID PRN for pain Prescribed by: DANA OMALLEY on 11/28/16 1402 Ondansetron (Ondansetron Odt) 8 Mg Tab.rapdis, 8 MG PO Q6H PRN for NAUSEA/VOMITING-1ST LINE Prescribed by: DANA OMALLEY on 11/28/16 1402 Phenazopyridine HCl (Pyridium) 100 Mg Tablet, 100 MG PO Q8H PRN for ain Prescribed by: DANA OMALLEY on 11/28/16 1402 Sulfamethoxazole/Trimethoprim (Bactrim Ds Tablet) 1 Each Tablet, 1 EACH PO BID Prescribed by: MILLY Cyr ROVENSTVITALY on 01/09/20 1602 Tamsulosin HCl (Flomax) 0.4 Mg Cap, 0.4 MG PO DAILY Prescribed by: DANA OMALLEY on 11/28/16 1402 Past Eckjbgx-Gmbasy-Bbpddh Hx Surgeries History of Surgeries: No Reviewed Nursing Assessment Reviewed/Agree w Nursing PMH: Yes Family Medical History Significant Family History: No Pertinent Family Hx Review of Systems-General Constitutional: No fever; weakness EENTM: No blurred vision, No double vision Respiratory: No cough, No short of breath Cardiovascular: No chest pain, No palpitations Gastrointestinal: abdominal pain (States that he has 2 hernias (umbilical and RLQ)); No dysphagia; hematemesis; No melena; nausea Genitourinary: No discharge, No frequency Musculoskeletal: No back pain, No joint pain Skin: No change in color Psychiatric/Neurological: Denies Anxiety, Denies Depressed, Denies Emotional Pr oblems All Other Systems Reviewed Negative Unless Noted: Yes (Negative excepted noted.) Physical Exam-General Problems Physical Exam General Appearance: WD/WN, no apparent distress HEENT: PERRL/EOMI, normal ENT inspection Neck: non-tender, supple Respiratory: chest non-tender, no respiratory distress, no accessory muscle use Cardiovascular: regular rate, rhythm, no JVD Gastrointestinal: soft, hernia (umbilical, right inguinal), hepatomegaly Rectal: deferred Back: no CVA tenderness Extremities: non-tender, no pedal edema, no calf tenderness Neurologic/Psychiatric: alert, normal mood/affect, oriented x 3 Skin: warm/dry, jaundice (slight) Lymphatic: no adenopathy Assessment/Plan Assessment/Plan Assessment/Plan Upper GI Bleed- possibly Ulcer secondary to NSAID use Liver cirrhosis 4 Chronic Hepatitis C Clear liquids Protonix IV fluids Monitor Hgb- 8.7 May need endoscopy inpatient vs outpatient Supervisory-Addendum Brief Verification & Attestation Participated in pt care: history, MDM, physical Personally performed: exam, history, MDM, supervision of care Care discussed with: Medical Student Procedures: n/a Results interpretation: Verified all documentation Verification and Attestation of Medical Student E/M Service A medical student performed and documented this service in my presence. I reviewed and verified all information documented by the medical student and made modifications to such information, when appropriate. I personally performed the physical exam and medical decision making. Bart Madrid, Apr 11, 2023,12:34 MARLEE CHEN Apr 11, 2023 10:18 BART MADRID DO Apr 11, 2023 12:31
--- NOTE | 2023-04-11 11:28 | History & Physical-Hospitalist ---
History of Present Illness HPI/Chief Complaint Chief complaint: Hematemesis HPI: This is a 52-year-old male prior history of IV drug use and alcoholism who ceased consumption 2 years ago who is currently on hepatitis C treatment who presents to the ER with hematemesis. PPI initiated along with Dr. Amos consult and clear liquid diet status. Currently denies any pain. Source: patient Exam Limitations: no limitations Date Seen 04/11/23 Time Seen by a Provider: 11:30 Attending Physician No,Local Physician PCP Admitting Physician: Attending Physician: Referring Physician Date of Admission Home Medications & Allergies Home Medications Reviewed patient Home Medication Reconciliation performed by pharmacy medication reconciliations computer repair technician and/or nursing. Patients Allergies have been reviewed. Allergies Allergies Coded Allergies No Known Drug Allergies (Unverified02/14/16) Past Tpluate-Odkivz-Wzuntd Hx Patient Social History Marrital Status: Employed/Student: unemployed Tobacco Use?: Yes Tobacco type used: Cigarettes Smoking Status: Current Everyday Smoker Substance use?: No Additional substance use comme: HX OF METH, 2 YRS CLEAN Alcohol Use?: No Immunizations Up To Date Tetanus Booster (TDap): Unknown Seasonal Allergies Seasonal Allergies: No Current Status Primary Language: Spanish Preferred Spoken Language: Spanish Past Medical History Kidney Stones Hepatitis (Hepatitis C) Blood Disorders: No Family Medical History Heart Disease Review of Systems Constitutional: see HPI Gastrointestinal: hematemesis Physical Exam Physical Exam Vital Signs Vital Signs - First Documented 04/11/23 04/11/23 04/11/23 09:34 12:25 12:32 Temp 36.7 Pulse 89 Resp 18 B/P (MAP) 110/65 (80) Pulse Ox 100 O2 Delivery Room Air O2 Flow Rate 0.00 FiO2 21 Capillary Refill : Less Than 3 Seconds Height, Weight, BMI Height: 5'7" Weight: 221lbs. oz. 100.044193dr; 32.00 BMI Method:Stated General Appearance: No Apparent Distress, Chronically ill Eyes: Right Eye Normal Inspection, Right Eye PERRL HEENT: PERRL/EOMI, Normal ENT Inspection, Pharynx Normal, Moist Mucous Membranes Neck: Full Range of Motion, Normal Inspection, Non Tender Respiratory: Chest Non Tender, Lungs Clear, Normal Breath Sounds, No Accessory Muscle Use, No Respiratory Distress Cardiovascular: Regular Rate, Rhythm, No Edema, No Gallop, No JVD, No Murmur, Normal Peripheral Pulses Gastrointestinal: Normal Bowel Sounds, No Organomegaly, No Pulsatile Mass, Non Tender, Soft Back: Normal Inspection, No CVA Tenderness, No Vertebral Tenderness Extremity: Normal Capillary Refill, Normal Inspection, Normal Range of Motion, Non Tender, No Calf Tenderness, No Pedal Edema Neurologic/Psychiatric: Alert, Oriented x3, No Motor/Sensory Deficits, Normal Mood/Affect Skin: Normal Color, Warm/Dry Lymphatic: No Adenopathy Results Results/Procedures Labs Laboratory Tests 04/11/23 09:40 04/11/23 19:00 04/12/23 01:15 04/12/23 04:23 Patient resulted labs reviewed. Assessment/Plan Admission Diagnosis Assessment: Hematemesis Acute blood loss anemia requiring transfusions Cirrhosis with thrombocytopenia and coagulopathy Hepatitis C on current treatment Plan: Transfuse PPI Dr. Amos consult Admission Status: Observation ANTON VALERO DO Apr 11, 2023 11:28
[2023-04-11] MEDS ORDERED: ANTACID SUSPENSION 30 ML UDC PO PRN (12:15)
[2023-04-11] MEDS ORDERED: ONDANSETRON 4 MG ORAL DISSOLVE TABLET PO PRN (12:15)
[2023-04-11] MEDS ORDERED: diphenhydrAMINE 25 MG TABLET PO PRN (12:15)
[2023-04-11] MEDS ORDERED: BISACODYL 10 MG SUPPOSITORY PR PRN (12:15)
[2023-04-11] MEDS ORDERED: ONDANSETRON INJECTION 4 MG/2 ML (SDV) IV PRN (12:15)
[2023-04-11] MEDS ORDERED: CALCIUM CARBONATE 500 MG CHEW TABLET PO PRN (12:15)
[2023-04-11] MEDS ORDERED: MELATONIN 3 MG TABLET PO PRN (12:15)
[2023-04-11] MEDS ORDERED: MILK OF MAGNESIA 400 MG/5 ML 30 ML UDC PO PRN (12:15)
[2023-04-11] MEDS ORDERED: HYDROmorphone INJECTION 2 MG/ML VIAL IV PRN (12:15)
[2023-04-11] MEDS ORDERED: LACTULOSE SYRUP 10GM/15ML 30ML UDC PO PRN (12:15)
[2023-04-11] MEDS ORDERED: diphenhydrAMINE INJ 50 MG/ML VIAL IVP PRN (12:15)
[2023-04-11] MEDS ORDERED: ACETAMINOPHEN 325 MG TABLET PO PRN (12:15)
[2023-04-11] MEDS ORDERED: RT-ALBUTEROL SULF 2.5 MG/3 ML PRE-MIX VIAL INH PRN (12:30)
[2023-04-11] MEDS ORDERED: FLUT15.845 NSEACH (13:05)
[2023-04-11] MEDS ORDERED: [UNRECOGNIZED DRUG - CODE] PO (13:05)
[2023-04-11] MEDS ORDERED: SOFO1TAB PO (13:05)
[2023-04-11] MEDS ORDERED: NICOTINE 21 MG PATCH TD ONE (15:00)
[2023-04-11] MEDS ORDERED: NS IV 500 ML 500 ML IV SCH (19:15)
[2023-04-11] MEDS: SENNOSIDES 8.6 MG TABLET PO SCH (21:53)
[2023-04-11] MEDS: DOCUSATE SODIUM 100 MG CAPSULE PO SCH (21:53)
[2023-04-11] MEDS: PANTOPRAZOLE INJECTION 40 MG VIAL IV SCH (23:22)
[2023-04-11] MEDS: NS IV 1000 ML 1,000 ML IV SCH (23:23)
[2023-04-12] VITALS (9 sets, daily range): BP systolic 95–130; BP diastolic 50–76
[2023-04-12 01:21] LABS: HEMOGLOBIN 8.1 g/dL (13.3-17.7)
[2023-04-12] MEDS: NS IV 1000 ML 1,000 ML IV SCH ×2 (01:25→14:58)
[2023-04-12 04:50] LABS: BASOPHILS % (AUTO) 0 % (0-10); HEMOGLOBIN 7.8 g/dL (13.3-17.7); NEUTROPHILS # (AUTO) 1.5 10^3/uL (1.8-7.8)
[2023-04-12 04:52] LABS: EOSINOPHILS # (AUTO) 0.1 10^3/uL (0.0-0.3); EOSINOPHILS % (AUTO) 4 % (0-10); HEMATOCRIT 24 % (40-54); LYMPHOCYTES # (AUTO) 0.8 10^3/uL (1.0-4.0); LYMPHOCYTES % (AUTO) 30 % (12-44); MEAN CORPUSCULAR HEMOGLOBIN 32 pg (25-34); MEAN CORPUSCULAR HGB CONC 32 g/dL (32-36); MEAN CORPUSCULAR VOLUME 99 fL (80-99); MEAN PLATELET VOLUME 10.5 fL (9.0-12.2); MONOCYTES # (AUTO) 0.2 10^3/uL (0.0-1.0); MONOCYTES % (AUTO) 9 % (0-12); NEUTROPHILS % (AUTO) 56 % (42-75); PLATELET COUNT 40 10^3/uL (130-400); WHITE BLOOD COUNT 2.6 10^3/uL (4.3-11.0)
[2023-04-12 05:27] LABS: ALBUMIN 2.6 GM/DL (3.2-4.5); BILIRUBIN,TOTAL 2.9 MG/DL (0.1-1.0); CALCIUM 7.8 MG/DL (8.5-10.1); CREATININE SERUM 0.72 MG/DL (0.60-1.30); POTASSIUM 4.1 MMOL/L (3.6-5.0); TOTAL PROTEIN 4.8 GM/DL (6.4-8.2)
--- NOTE | 2023-04-12 06:33 | Progress Note - Hospitalist ---
Subjective HPI/CC On Admission Date Seen by Provider: Apr 12, 2023 Time Seen by Provider: 11:00 Chief complaint: Hematemesis HPI: This is a 52-year-old male prior history of IV drug use and alcoholism who ceased consumption 2 years ago who is currently on hepatitis C treatment who presents to the ER with hematemesis. PPI initiated along with Dr. Amos consult and clear liquid diet status. Currently denies any pain. Subjective/Events-last exam Patient doing pretty well Hemoglobin reviewed EGD today No pain Review of Systems General: Fatigue Objective Exam Vital Signs Vital Signs Date Time Temp Pulse Resp B/P (MAP) Pulse Ox O2 Delivery O2 Flow Rate FiO2 04/12/23 12:20 94 04/12/23 12:00 37.3 14 119/76 (90) 98 Room Air 04/11/23 23:46 0.00 0.00 04/11/23 12:25 21 Capillary Refill : Less Than 3 Seconds General Appearance: No Apparent Distress, WD/WN, Chronically ill Results/Procedures Lab Laboratory Tests 04/11/23 19:00 04/12/23 01:15 04/12/23 04:23 Patient resulted labs reviewed. Assessment/Plan Assessment and Plan Assess & Plan/Chief Complaint Assessment: Hematemesis Acute blood loss anemia requiring transfusions Cirrhosis with thrombocytopenia and coagulopathy Hepatitis C on current treatment Plan: Transfuse PPI Dr. Amos consult EGD Clinical Quality Measures DVT/VTE Risk/Contraindication: Contraindications-Pharm: Other *list below* Other: ANTON Jaeger DO Apr 12, 2023 06:33
[2023-04-12] MEDS: PATCH REMOVAL TP SCH (08:50)
[2023-04-12] MEDS: DOCUSATE SODIUM 100 MG CAPSULE PO SCH ×2 (08:50→20:00)
[2023-04-12] MEDS: NICOTINE 21 MG PATCH TD SCH (08:50)
[2023-04-12] MEDS: PANTOPRAZOLE INJECTION 40 MG VIAL IV SCH ×2 (08:50→20:00)
[2023-04-12] MEDS: SENNOSIDES 8.6 MG TABLET PO SCH ×2 (08:50→20:00)
--- NOTE | 2023-04-12 09:43 | Progress Note - Surgery ---
MARLEE CHEN 04/12/23 0942: Subjective Date Seen by a Provider: Apr 12, 2023 Time Seen by a Provider: 08:45 Subjective/Events-last exam Pt is laying in bed comfortably. Pt states that since being admitted yesterday that he has had 8 BMs that are "dark and bloody" that have progressively become more diarrhea-like. Pt has received 1 transfusion of PRBCs and is currently being transfused with 1 more PRBCs. Hgb is 7.8. No pain currently, but states that when moving around, he has pain "from his hernia". Denies nausea, vomiting, abd pain, dysuria, chest pain, SOA, fever. Pt feels fatigued. Review of Systems General: No Chills, No Night Sweats; Fatigue HEENT: No Head Aches, No Sinus Congestion Pulmonary: No Dyspnea, No Cough Cardiovascular: No: Chest Pain, Palpitations Gastrointestinal: Diarrhea, Melena; No: Nausea, Vomiting, Abdominal Pain Genitourinary: No Dysuria, No Hematuria Musculoskeletal: No: neck pain, shoulder pain Neurological: No: Weakness, Numbness Objective Exam Vital Signs Date Time Temp Pulse Resp B/P (MAP) Pulse Ox O2 Delivery O2 Flow Rate FiO2 04/12/23 07:59 Room Air 04/12/23 07:53 83 16 114/68 99 Room Air 04/12/23 07:49 36.6 90 24 107/61 (76) 98 Room Air 04/12/23 07:45 97 Room Air 04/12/23 07:37 36.6 90 18 107/61 98 Room Air 04/12/23 07:00 89 04/12/23 04:00 36.8 04/12/23 03:23 87 31 95/50 (65) 98 Room Air 04/12/23 00:58 90 04/11/23 23:46 37.4 96 31 119/81 (94) 98 Room Air 0.00 0.00 04/11/23 23:10 37.4 96 31 119/81 98 Room Air 04/11/23 20:31 37.1 102 27 104/55 97 Room Air 04/11/23 20:27 99 Room Air 04/11/23 20:05 37.1 93 38 108/66 99 Room Air 04/11/23 19:41 37.3 105 20 108/66 (80) 97 Room Air 04/11/23 19:02 117 04/11/23 16:26 37.8 88 24 127/98 (108) 99 Room Air 04/11/23 12:32 99 Room Air 0.00 04/11/23 12:25 36.7 89 100 21 04/11/23 12:23 94 04/11/23 12:00 Room Air 04/11/23 11:43 37.1 95 22 159/80 (106) 98 Simple Mask 04/11/23 11:31 36.7 90 18 102/61 99 Room Air I & O 04/12/23 06:59 Intake Total 3575 ml Balance 3575 ml Capillary Refill : Less Than 3 Seconds General Appearance: No Apparent Distress, Chronically ill HEENT: PERRL/EOMI, Normal ENT Inspection, Pharynx Normal, Moist Mucous Membranes Neck: Full Range of Motion, Normal Inspection, Non Tender Respiratory: Chest Non Tender, Lungs Clear, Normal Breath Sounds, No Accessory Muscle Use, No Respiratory Distress Cardiovascular: Regular Rate, Rhythm, No Edema, No Murmur, Normal Peripheral Pulses Gastrointestinal: soft, tenderness (LUQ), hernia (umbilical, right inguinal), hepatomegaly, spleenomegaly Extremity: Non Tender, No Calf Tenderness, No Pedal Edema Neurologic/Psychiatric: Alert, Oriented x3, No Motor/Sensory Deficits, Normal Mood/Affect Skin: Warm/Dry, Jaundice Lymphatic: No Adenopathy Results Lab Laboratory Tests 04/11/23 09:40: White Blood Count 5.8, Red Blood Count 2.73L, Hemoglobin 8.7L, Hematocrit 28L, Mean Corpuscular Volume 101H, Mean Corpuscular Hemoglobin 32, Mean Corpuscular Hemoglobin Concent 32, Red Cell Distribution Width 16.5H, Platelet Count 62L, Mean Platelet Volume 10.1, Immature Granulocyte % (Auto) 1, Neutrophils (%) (Auto) 74, Lymphocytes (%) (Auto) 13, Monocytes (%) (Auto) 10, Eosinophils (%) (Auto) 2, Basophils (%) (Auto) 0, Neutrophils # (Auto) 4.3, Lymphocytes # (Auto) 0.8L, Monocytes # (Auto) 0.6, Eosinophils # (Auto) 0.1, Basophils # (Auto) 0.0, Immature Granulocyte # (Auto) 0.0, Percent Immature Platelet Fraction 3.1, Prothrombin Time 18.4H, INR Comment 1.5H, Activated Partial Thromboplast Time 32, Sodium Level 138, Potassium Level 4.2, Chloride Level 112H, Carbon Dioxide Level 23, Anion Gap 3L, Blood Urea Nitrogen 11, Creatinine 0.81, Estimat Glomerular Filtration Rate 107, BUN/Creatinine Ratio 14, Glucose Level 128H, Calcium Level 7.3L, Corrected Calcium 8.4L, Total Bilirubin 2.5H, Aspartate Amino Transf (AST/SGOT) 17, Alanine Aminotransferase (ALT/SGPT) 10, Alkaline Phosphatase 44, Total Protein 5.0L, Albumin 2.6L 04/11/23 19:00: Hemoglobin 8.0L, Hematocrit 25L 04/12/23 01:15: Hemoglobin 8.1L, Hematocrit 24L 04/12/23 04:23: White Blood Count 2.6L, Red Blood Count 2.46L, Hemoglobin 7.8L, Hematocrit 24L, Mean Corpuscular Volume 99, Mean Corpuscular Hemoglobin 32, Mean Corpuscular Hemoglobin Concent 32, Red Cell Distribution Width 16.7H, Platelet Count 40L, Mean Platelet Volume 10.5, Immature Granulocyte % (Auto) 0, Neutrophils (%) (Auto) 56, Lymphocytes (%) (Auto) 30, Monocytes (%) (Auto) 9, Eosinophils (%) (Auto) 4, Basophils (%) (Auto) 0, Neutrophils # (Auto) 1.5L, Lymphocytes # (Auto) 0.8L, Monocytes # (Auto) 0.2, Eosinophils # (Auto) 0.1, Basophils # (Auto) 0.0, Immature Granulocyte # (Auto) 0.0, Percent Immature Platelet Fraction 3.0, Sodium Level 139, Potassium Level 4.1, Chloride Level 113H, Carbon Dioxide Level 18L, Anion Gap 8, Blood Urea Nitrogen 20H, Creatinine 0.72, Estimat Glomerular Filtration Rate 111, BUN/Creatinine Ratio 28, Glucose Level 93, Calcium Level 7.8L, Corrected Calcium 8.9, Total Bilirubin 2.9H, Aspartate Amino Transf (AST/SGOT) 25, Alanine Aminotransferase (ALT/SGPT) 16, Alkaline Phosphatase 36L, Total Protein 4.8L, Albumin 2.6L Assessment/Plan Assessment/Plan Assessment/Plan Upper GI Bleed- possibly Ulcer secondary to NSAID use Liver cirrhosis 4 Chronic Hepatitis C Hematochezia NPO Protonix IV fluids Transfused 2 PRBCs- Hgb decreasing- Transfuse more PRBCs Monitor Hgb- Hgb 7.8 today down from 8.7 yesterday. May need endoscopy inpatient due to decreasing Hgb and high volume dark/bloody stools Clinical Quality Measures DVT/VTE Risk/Contraindication: Contraindications-Pharm: Other *list below* Other: BART Castillo DO 04/12/23 1119: Subjective Subjective/Events-last exam Patient having multiple bloody/dark bowel movements. He has been given 2 units prbc so far. patient Hgb 7.8 currentl was 8.7 yesterday. Denies n/v fever sweats chills shortness of breath or chest pain. Objective Exam General Appearance: No Apparent Distress, Chronically ill HEENT: PERRL/EOMI, Normal ENT Inspection Neck: Normal Inspection, Non Tender Respiratory: Chest Non Tender, No Accessory Muscle Use, No Respiratory Distress Cardiovascular: Regular Rate, Rhythm, No JVD Gastrointestinal: soft, tenderness (LUQ minimal), hernia (umbilical, right inguinal), hepatomegaly, spleenomegaly Extremity: Non Tender, No Calf Tenderness Neurologic/Psychiatric: Alert, Oriented x3 Skin: Warm/Dry, Jaundice Lymphatic: No Adenopathy Assessment/Plan Assessment/Plan Assessment/Plan Upper GI Bleed- possibly Ulcer secondary to NSAID use Liver cirrhosis Chronic Hepatitis C Hematochezia NPO Protonix IV fluids Transfused 2 PRBCs- Hgb decreasing- Transfuse more PRBCs Monitor Hgb- Hgb 7.8 today down from 8.7 yesterday. Discussed risks and benefits of EGD for further evaluation and management. He understands and wishes to proceed. Supervisory-Addendum Brief Verification & Attestation Participated in pt care: history, MDM, physical Personally performed: exam, history, MDM, supervision of care Care discussed with: Medical Student Procedures: n/a Results interpretation: Verified all documentation Verification and Attestation of Medical Student E/M Service A medical student performed and documented this service in my presence. I reviewed and verified all information documented by the medical student and made modifications to such information, when appropriate. I personally performed the physical exam and medical decision making. Bart Amos, Apr 12, 2023,11:19 MARLEE CHEN Apr 12, 2023 09:42 BART AMOS DO Apr 12, 2023 11:19
[2023-04-12] MEDS ORDERED: LACTATED RINGERS 1,000 ML 1,000 ML IV ONE (11:34)
[2023-04-12] MEDS ORDERED: HURRICAINE EXT TUBE (BENZOCAINE) ONE (11:34)
[2023-04-12] MEDS ORDERED: MIDAZOLAM INJ 2 MG/2 ML VIAL ONE (12:21)
[2023-04-12] MEDS ORDERED: KETAMINE 50 MG/5 ML SYRINGE ONE (12:21)
--- NOTE | 2023-04-12 14:16 | Progress Note-Post Operative ---
Post-Operative Progess Note Surgeon (s)/Public Health Professor (s) Surgeon BART MADRID DO Public Health Professor: n/a Pre-Operative Diagnosis Hematemesis Post-Operative Diagnosis Duodenitis, Gastritis, Esophageal Varices Stage 4 Procedure & Operative Findings Date of Procedure 04/12/23 Procedure Performed/Findings EGD Anesthesia Type per EDITING CLERK Estimated Blood Loss Estimated blood loss (mL): none Specimens/Packing Specimens Removed none BART MADRID DO Apr 12, 2023 14:16
[2023-04-12] MEDS: oxyCODONE IMMEDIATE RELEASE 5 MG TABLET PO PRN ×2 (16:51→23:15)
--- NOTE | 2023-04-12 17:34 | OPERATIVE REPORT ---
DATE OF SERVICE: 04/12/2023 PREOPERATIVE DIAGNOSIS: Hematemesis. POSTOPERATIVE DIAGNOSES: Duodenitis, gastritis, esophageal varices, stage IV. PROCEDURE: EGD. SURGEON: Bart Amos DO ANESTHESIA: Per HYGIENE COORDINATOR. ESTIMATED BLOOD LOSS: None. COMPLICATIONS: None. INDICATIONS: The patient is a 52-year-old male who came in with hematemesis. He is anemic. He has been transfused. He is having dark bloody stools. The patient was discussed risks and benefits of having EGD performed. He understands and wishes to proceed. Consent was signed in chart. DESCRIPTION OF PROCEDURE: The patient was taken to the endoscopy suite, placed in the left lateral recumbent position. Timeout was performed. Scope was inserted in the mouth, down the esophagus, stomach and into the duodenum without difficulty. No polyps, masses or ulcerations. Changes of duodenitis present more in the first portion of the duodenum. Scope was slowly retracted in the stomach where it was further insufflated. No polyps, masses or ulcerations. Scope was retroflexed, noting some gastritis appearance. Scope was returned to its normal position, slowly withdrawn until distal esophagus. Encountering significant esophageal varices through the esophagus in all quadrants. Distally, one of the varices had appearance of some slight mucosal change, but no active bleeding and it was larger in size as well. Scope was slowly retracted back until completely removed, noting no other pathology. The patient tolerated the procedure well without complications, taken to recovery room in stable condition. RECOMMENDATIONS: The patient will need followup with GI, for he may benefit from banding. The patient also will need to follow up with GI and Hepatology for further management. Job ID: [id number] DocumentID: [id number] Dictated Date: 04/12/2023 14:17:48 Child Care Associate Teacher Date: 04/12/2023 17:32:00 Dictated By: BART AMOS DO
[2023-04-13] MEDS: NS IV 1000 ML 1,000 ML IV SCH (01:28)
[2023-04-13 03:08] VITALS: BP_SYST 91; BP_SYST 99; BP_DIAS 45; BP_DIAS 62
[2023-04-13 04:58] LABS: MEAN CORPUSCULAR VOLUME 98 fL (80-99); MEAN PLATELET VOLUME 10.1 fL (9.0-12.2); MONOCYTES # (AUTO) 0.2 10^3/uL (0.0-1.0)
[2023-04-13 05:00] LABS: BASOPHILS % (AUTO) 1 % (0-10); EOSINOPHILS # (AUTO) 0.1 10^3/uL (0.0-0.3); EOSINOPHILS % (AUTO) 4 % (0-10); HEMATOCRIT 25 % (40-54); LYMPHOCYTES # (AUTO) 0.6 10^3/uL (1.0-4.0); LYMPHOCYTES % (AUTO) 35 % (12-44); MEAN CORPUSCULAR HEMOGLOBIN 31 pg (25-34); MEAN CORPUSCULAR HGB CONC 32 g/dL (32-36); MONOCYTES % (AUTO) 9 % (0-12); NEUTROPHILS # (AUTO) 0.8 10^3/uL (1.8-7.8); NEUTROPHILS % (AUTO) 51 % (42-75); WHITE BLOOD COUNT 1.6 10^3/uL (4.3-11.0)
[2023-04-13 05:17] LABS: PLATELET COUNT 39 10^3/uL (130-400)
[2023-04-13 05:25] LABS: ALBUMIN 2.7 GM/DL (3.2-4.5); BILIRUBIN,TOTAL 2.9 MG/DL (0.1-1.0); CALCIUM 7.7 MG/DL (8.5-10.1); CREATININE SERUM 0.79 MG/DL (0.60-1.30); POTASSIUM 3.7 MMOL/L (3.6-5.0); TOTAL PROTEIN 4.9 GM/DL (6.4-8.2)
[2023-04-13 08:00] VITALS: BP 96/52
[2023-04-13] MEDS: NICOTINE 21 MG PATCH TD SCH (08:52)
[2023-04-13] MEDS: PANTOPRAZOLE INJECTION 40 MG VIAL IV SCH (08:52)
[2023-04-13] MEDS: DOCUSATE SODIUM 100 MG CAPSULE PO SCH (08:52)
[2023-04-13] MEDS: SENNOSIDES 8.6 MG TABLET PO SCH (08:52)
[2023-04-13] MEDS: PATCH REMOVAL TP SCH (08:53)
[2023-04-13] MEDS ORDERED: ACET-2267 PO (09:54)
[2023-04-13] MEDS ORDERED: PANT40TA2 PO (10:20)
--- NOTE | 2023-04-13 10:22 | Discharge Summary ---
Discharge Summary Hospital Course Was the Problem List Reviewed?: Yes Problems/Dx: (1) Upper GI bleeding Status: Acute (2) History of hepatitis C virus infection Status: Acute Hospital Course Date of Admission: Apr 11, 2023 at 11:32 Admission Diagnosis : Family Physician/Provider: No,Local Physician Date of Discharge: 04/13/23 Discharge Diagnosis: [ ] Hospital Course: Cj Clarke is a 52 year old male with a PMH of cirrhosis stage 4, hepatitis C, and gallstones that presented to the ED on 04/11 at 0900 due to vomiting blood. Pt reported that he is currently being treated for his Hep C by a ASSOCIATE JAVA DEVELOPER at [facility], Berenice Vang. The Hep C treatment is the only medications he reports taking. Pt denied ever having a colonoscopy or EGD. Pt denies using alcohol or illicit drugs. 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 Pt admits to smoking cigarettes. Pt had a PE performed along with labs drawn in the ER. Due to the suspicion of an Upper GI bleed, surgery was consulted and the pt was admitted. EGD was performed on 04/12. Results recorded were duodenitis, gastritis, and esophageal varices stage 4. DDx was upper GI bleed that was possibly PUD secondary to NSAID use. CBC and CMP labs were monitored closely throughout his stay. Today, 04/13, the pt reports that he is feeling better. He denies having any abdominal pain, chest pain, SOB, or any pain during BMs. He has been seeing dark blood with clots in his stool, but they are less than before. Pt's was present and reports that she has been checking his stools after each BM. Pt will be discharged today with a set of instructions to follow up with his PCP to discuss treatment of his conditions. Pt understands and verbalizes that he wants to go home. Labs and Pending Lab Test: Laboratory Tests 04/13/23 04:30: White Blood Count 1.6L, Red Blood Count 2.56L, Hemoglobin 8.0L, Hematocrit 25L, Mean Corpuscular Volume 98, Mean Corpuscular Hemoglobin 31, Mean Corpuscular Hemoglobin Concent 32, Red Cell Distribution Width 16.9H, Platelet Count 39*L, Mean Platelet Volume 10.1, Immature Granulocyte % (Auto) 0, Neutrophils (%) (Auto) 51, Lymphocytes (%) (Auto) 35, Monocytes (%) (Auto) 9, Eosinophils (%) (Auto) 4, Basophils (%) (Auto) 1, Neutrophils # (Auto) 0.8L, Lymphocytes # (Auto) 0.6L, Monocytes # (Auto) 0.2, Eosinophils # (Auto) 0.1, Basophils # (Auto) 0.0, Immature Granulocyte # (Auto) 0.0, Percent Immature Platelet Fraction 3.0, Sodium Level 139, Potassium Level 3.7, Chloride Level 112H, Carbon Dioxide Level 20L, Anion Gap 7, Blood Urea Nitrogen 16, Creatinine 0.79, Estimat Glomerular Filtration Rate 108, BUN/Creatinine Ratio 20, Glucose Level 80, Calcium Level 7.7L, Corrected Calcium 8.7, Total Bilirubin 2.9H, Aspartate Amino Transf (AST/SGOT) 29, Alanine Aminotransferase (ALT/SGPT) 21, Alkaline Phosphatase 37L, Total Protein 4.9L, Albumin 2.7L Home Meds Active Reported Tylenol Extra Strength (Acetaminophen) 500 Mg Tablet 1,000 Mg PO Q8H PRN Epclusa 400 mg-100 mg Tablet (Sofosbuvir/Velpatasvir) 400 Mg-100 Mg Tablet 1 Each PO HS Ribavirin 200 Mg Tablet 600 Mg PO BID TAKES 3 (200MG) TABS Fluticasone Propionate 50 Mcg/Actuation [place].susp 1 [place] NSEACH DAILY PRN Assessment/Pt Instructions PCP Dr. Quinteros Discharge Planning: <30 minutes discharge planning Discharge Instructions Discharge Diet: Liquid Diet Discharge Physical Examination Vital Signs Vital Signs Date Time Temp Pulse Resp B/P (MAP) Pulse Ox O2 Delivery O2 Flow Rate FiO2 04/13/23 08:30 97 Room Air 04/13/23 08:00 36.6 78 16 96/52 (67) 04/12/23 18:45 0.00 04/11/23 12:25 21 General Appearance: No Apparent Distress, WD/WN Allergies: Coded Allergies: No Known Drug Allergies (Unverified , 02/14/16) Discharge Summary Date of Admission Apr 11, 2023 at 11:32 Date of Discharge Discharge Date: Apr 13, 2023 Admission Diagnosis Assessment: Hematemesis Acute blood loss anemia requiring transfusions Cirrhosis with thrombocytopenia and coagulopathy Hepatitis C on current treatment Plan: Transfuse PPI Dr. Amos consult Discharge Diagnosis Assessment: Hematemesis Acute blood loss anemia requiring transfusions Cirrhosis with thrombocytopenia and coagulopathy Hepatitis C on current treatment Plan: Transfuse PPI Dr. Amos consult EGD Clinical Quality Measures DVT/VTE Risk/Contraindication: Contraindications-Pharm: Other *list below* Other: ANTON Jaeger DO Apr 13, 2023 10:22
--- NOTE | 2023-04-13 11:28 | Progress Note ---
GUALBERTO BLANKENSHIP 04/13/23 1128: Progress Note Cj Clarke is a 52 year old male with a PMH of cirrhosis stage 4, hepatitis C, and gallstones that presented to the ED on 04/11 at 0900 due to vomiting blood. Pt reported that he is currently being treated for his Hep C by a NURSE COLLEGE at [facility], Berenice Vang. The Hep C treatment is the only medications he reports taking. Pt denied ever having a colonoscopy or EGD. Pt denies using alcohol or illicit drugs. 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 Pt admits to smoking cigarettes. Pt had a PE performed along with labs drawn in the ER. Due to the suspicion of an Upper GI bleed, surgery was consulted and the pt was admitted. EGD was performed on 04/12. Results recorded were duodenitis, gastritis, and esophageal varices stage 4. DDx was upper GI bleed that was possibly PUD secondary to NSAID use. CBC and CMP labs were monitored closely throughout his stay. Today, 04/13, the pt reports that he is feeling better. He denies having any abdominal pain, chest pain, SOB, or any pain during BMs. He has been seeing dark blood with clots in his stool, but they are less than before. Pt's was present and reports that she has been checking his stools after each BM. Pt will be discharged today with a set of instructions to follow up with his PCP to discuss treatment of his conditions. Pt understands and verbalizes that he wants to go home. SHELBY VAELRO DO 04/14/23 0446: Supervisory-Addendum Brief Verification & Attestation Participated in pt care: history, MDM, physical Personally performed: exam, history, MDM, supervision of care Care discussed with: Medical Student Procedures: n/a Results interpretation: Verified all documentation Verification and Attestation of Medical Student E/M Service A medical student performed and documented this service in my presence. I reviewed and verified all information documented by the medical student and made modifications to such information, when appropriate. I personally performed the physical exam and medical decision making. Shelby Valero Apr 14, 2023,04:46 GUALBERTO BLANKENSHIP Apr 13, 2023 11:28 SHELBY VALERO DO Apr 14, 2023 04:46
[2023-04-13 12:00] VITALS: BP 110/80
[2023-04-13 12:42] VITALS: BP 110/80
== END 2023-04-13 12:25 | disposition home or self-care (01) ==
LOC: EDUNIT# 09:31 → ER 09:32 → CSD 11:32
PROVIDERS: ADMIT Internal Medicine; ATTEND Internal Medicine
DX: K74.60 Unspecified cirrhosis of liver (principal); I85.11 Secondary esophageal varices with bleeding; D62 Acute posthemorrhagic anemia; D69.6 Thrombocytopenia, unspecified; B18.2 Chronic viral hepatitis C; F10.21 Alcohol dependence, in remission; K29.81 Duodenitis with bleeding; K29.71 Gastritis, unspecified, with bleeding; K80.20 Calculus of gallbladder without cholecystitis without obstruction; F17.210 Nicotine dependence, cigarettes, uncomplicated; Z79.1 Long term (current) use of non-steroidal anti-inflammatories (NSAID); Z79.899 Other long term (current) drug therapy
CPT/HCPCS: 36430; 43235; 80053 ×3; 83540; 85014 ×2; 85018 ×2; 85025 ×3; 85610; 85730; 86850; 86900; 86901; 86920; 94760; 96375; 96376 ×3; 99284; G0378; P9016 ×2; 36415